=== PATIENT | male | born 1970 | race Hispanic/Latino ===

== ENCOUNTER 2018-01-17 15:12 | Emergency (ER) | payer SELFPAY ==
--- NOTE | 2018-01-17 17:57 | ER ---
Nurse's Notes [facility] Name: Rich Prakash Age: 47 yrs Sex: Male : 1970 Arrival Date: 01/17/2018 Time: 15:14 Bed 30 Private MD: Diagnosis: Osteoarthritis, unspecified site Presentation: 01/17 15:22 Presenting complaint: Patient states: "I was lifting a water heater and it slipped, I lk1 was holding in with one arm and I felt something pop in my shoulder (right)". Transition of care: patient was not received from another setting of care. Onset of symptoms was January 16, 2018 at 10:00. Care prior to arrival: None. 15:22 Method Of Arrival: Ambulatory lk1 15:22 Acuity: GRABIEL 3 lk1 Triage Assessment: 15:24 General: Appears in no apparent distress. Behavior is cooperative, appropriate for age, lk1 anxious. Pain: Complains of pain in right arm Pain currently is 8 out of 10 on a pain scale. at worst was 10 out of 10 on a pain scale. Historical: - Allergies: 15:24 Peanut; lk1 - PMHx: 15:24 Hypertension; lk1 - PSHx: 15:24 None; lk1 - Immunization history:: Adult Immunizations not up to date. - Social history:: Smoking status: Patient uses tobacco products, smokes one pack cigarettes per day. Screenin:15 Abuse screen: Denies threats or abuse. Nutritional screening: No deficits noted. tl3 Tuberculosis screening: No symptoms or risk factors identified. Fall Risk None identified. Assessment: 17:15 General: Appears uncomfortable, well groomed, well developed, well nourished, Behavior tl3 is calm, cooperative, appropriate for age. Pain: Complains of pain in right arm, right shoulder Pain currently is 8 out of 10 on a pain scale. Neuro: No deficits noted. Level of Consciousness is awake, alert, obeys commands, Oriented to person, place, time, situation, Appropriate for age. Cardiovascular: Heart tones S1 S2 present Capillary refill < 3 seconds in right fingers. Respiratory: Airway is patent Trachea midline Breath sounds are clear bilaterally. GI: No signs and/or symptoms were reported involving the gastrointestinal system. : No signs and/or symptoms were reported regarding the genitourinary system. EENT: No signs and/or symptoms were reported regarding the EENT system. Derm: No signs and/or symptoms reported regarding the dermatologic system. Musculoskeletal: Reports pain in right arm, right shoulder. Injury Description: pt was helping to install a water heater when he felt his shoulder pop, soreness to shoulder and swelling to elbow area. 18:10 Reassessment: Patient appears in no apparent distress at this time. No changes from tl3 previously documented assessment. Patient and/or family updated on plan of care and expected duration. Pain level reassessed. Patient is alert, oriented x 3, equal unlabored respirations, skin warm/dry/pink. Dr Love at bedside discussing POC. Vital Signs: 15:25 BP 141 / 116; Pulse 120; Resp 18; Temp 98.4(TE); Pulse Ox 97% on R/A; Weight 79.38 kg lk1 (R); Height 5 ft. 6 in. (167.64 cm); Pain 8/10; 17:59 BP 143 / 109; Pulse 98; Resp 18; Pulse Ox 100% ; tl3 15:25 Body Mass Index 28.25 (79.38 kg, 167.64 cm) lk1 ED Course: 15:14 Patient arrived in ED. as 15:23 Triage completed. lk1 15:25 Arm band placed on left wrist. lk1 17:04 Tania Reed, RN is Primary Nurse. tl3 17:05 Ponce Love MD is Attending Physician. gs 17:15 No apparent distress. Awaiting for x-ray. tl3 17:15 Patient has correct armband on for positive identification. Bed in low position. Call tl3 light in reach. Adult w/ patient. 17:15 No provider procedures requiring assistance completed. tl3 17:42 X-ray(s) taken. tl3 17:56 Dillon Gentile MD is Referral Physician. gs 18:05 Shoulder Right (2 View) XRAY In Process Unspecified. EDMS 18:10 Patient did not have IV access during this emergency room visit. tl3 Administered Medications: No medications were administered Outcome: 17:57 Discharge ordered by . gs 18:10 Discharged to home ambulatory. tl3 18:10 Condition: stable 18:10 Discharge instructions given to patient, Instructed on discharge instructions, follow up and referral plans. medication usage, Demonstrated understanding of instructions, follow-up care, medications, Prescriptions given X 1, instructed on using sling for comfort, rest and medications as directed, also discussed importance of getting HTN under control 18:13 Patient left the ED. tl3 Signatures: Dispatcher [employer] Deja Patel Leah, RN RN lk1 Ponce Love MD MD gs Lowrey, Tammy, RN RN tl3
--- NOTE | 2018-01-17 17:57 | EDPHYS ---
Physician Documentation [facility] Name: Rich Prakash Age: 47 yrs Sex: Male : 1970 Arrival Date: 01/17/2018 Time: 15:14 Bed 30 Private MD: ED Physician Ponce Love HPI: 01/17 17:50 This 47 yrs old Male presents to ER via Ambulatory with complaints of Shoulder gs Pain, Elbow Pain. 17:50 The patient or guardian complains of pain, that is acute. gs Historical: - Allergies: 15:24 Peanut; lk1 - PMHx: 15:24 Hypertension; lk1 - PSHx: 15:24 None; lk1 - Immunization history:: Adult Immunizations not up to date. - Social history:: Smoking status: Patient uses tobacco products, smokes one pack cigarettes per day. ROS: 17:54 All other systems are negative. gs Exam: 17:54 Head/Face: Normocephalic, atraumatic. Eyes: Pupils equal round and reactive to light, gs extra-ocular motions intact. Lids and lashes normal. Conjunctiva and sclera are non-icteric and not injected. Cornea within normal limits. Periorbital areas with no swelling, redness, or edema. ENT: Nares patent. No nasal discharge, no septal abnormalities noted. Tympanic membranes are normal and external auditory canals are clear. Oropharynx with no redness, swelling, or masses, exudates, or evidence of obstruction, uvula midline. Mucous membranes moist. Neck: Trachea midline, no thyromegaly or masses palpated, and no cervical lymphadenopathy. Supple, full range of motion without nuchal rigidity, or vertebral point tenderness. No Meningismus. Chest/axilla: Normal chest wall appearance and motion. Nontender with no deformity. No lesions are appreciated. Cardiovascular: Regular rate and rhythm with a normal S1 and S2. No gallops, murmurs, or rubs. Normal PMI, no JVD. No pulse deficits. Respiratory: Lungs have equal breath sounds bilaterally, clear to auscultation and percussion. No rales, rhonchi or wheezes noted. No increased work of breathing, no retractions or nasal flaring. Abdomen/GI: Soft, non-tender, with normal bowel sounds. No distension or tympany. No guarding or rebound. No evidence of tenderness throughout. Back: No spinal tenderness. No costovertebral tenderness. Full range of motion. Skin: Warm, dry with normal turgor. Normal color with no rashes, no lesions, and no evidence of cellulitis. Neuro: Awake and alert, GCS 15, oriented to person, place, time, and situation. Cranial nerves II-XII grossly intact. Motor strength 5/5 in all extremities. Sensory grossly intact. Cerebellar exam normal. Normal gait. 17:54 Constitutional: The patient appears alert, awake. 17:54 Musculoskeletal/extremity: ROM: limited active range of motion, limited passive range of motion, limited active range of motion due to pain, limited passive range of motion due to pain, Pulses: are normal with no appreciated deficits, Sensation intact. Joints: the right shoulder displays painful range of motion, tenderness. 17:57 Musculoskeletal/extremity: cyst r elbow not red or hot nl rom. gs Vital Signs: 15:25 BP 141 / 116; Pulse 120; Resp 18; Temp 98.4(TE); Pulse Ox 97% on R/A; Weight 79.38 kg lk1 (R); Height 5 ft. 6 in. (167.64 cm); Pain 8/10; 17:59 BP 143 / 109; Pulse 98; Resp 18; Pulse Ox 100% ; tl3 15:25 Body Mass Index 28.25 (79.38 kg, 167.64 cm) lk1 MDM: 17:18 Patient medically screened. gs 17:54 Differential diagnosis: Anterior dislocation with fracture, DJD, tendonitis. Data gs reviewed: vital signs, nurses notes. 01/17 17:21 Order name: Shoulder Right (2 View) XRAY gs Administered Medications: No medications were administered Disposition: 01/17/18 17:57 Discharged to Home. Impression: Osteoarthritis, unspecified site. - Condition is Stable. - Discharge Instructions: Shoulder Pain. - Prescriptions for Tylenol- Codeine #4 300-60 mg Oral Tablet - take 1 tablet by ORAL route every 6 hours As needed; 10 tablet. - Medication Reconciliation Form, Thank You Letter, Antibiotic Education, Prescription Opioid Use form. - Follow up: Private Physician; When: 2 - 3 days; Reason: Re-evaluation by your physician. Follow up: Dillon Gentile MD; When: 2 - 3 days; Reason: Re-evaluation by your physician. Signatures: Dispatcher [employer] Kendal Baltazar, RN RN lk1 Ponce Love MD MD gs Lowrey, Tammy, RN RN tl3
[2018-01-17 18:18] VITALS: TEMP 98.4
[2018-01-17 18:20] VITALS: BP 143/109; O2SAT 100
--- NOTE | 2018-01-17 18:38 | RAD REPORT ---
EXAM DESCRIPTION: RAD - Shoulder Right 2 View - 01/17/2018 6:05 pm CLINICAL HISTORY: Right shoulder pain and swelling. COMPARISON: None. FINDINGS: Mild osteoarthritis affects the AC joint with inferiorly projecting osteophyte. Mild to mo derate glenohumeral joint arthritic changes are seen. No fracture, dislocation or aggressive marrow l esion. Subacromial outlet narrowing is noted, which could indicate underlying rotator cuff pathology.
== END 2018-01-17 18:13 | disposition home or self-care (01) ==
LOC: ER 15:12
DX: M19.90 Unspecified osteoarthritis, unspecified site (principal); I10 Essential (primary) hypertension; F17.210 Nicotine dependence, cigarettes, uncomplicated; Z91.010 Allergy to peanuts
CPT/HCPCS: 99283

== ENCOUNTER 2019-06-06 13:21 | Emergency (ER) | payer SELFPAY ==
[2019-06-06] MEDS ORDERED: FLUORESCEIN SODIUM 1 MG/WRAP ONE (13:54)
[2019-06-06] MEDS ORDERED: TETRACAINE HCL 0.5% 4ML OPTH ONE (13:54)
--- NOTE | 2019-06-06 14:33 | ER ---
Nurse's Notes [facility] Name: Rich Prakash Age: 48 yrs Sex: Male : 1970 Arrival Date: 06/06/2019 Time: 13:26 Bed 14 Private MD: Diagnosis: Injury of conjunctiva and corneal abrasion without foreign body;Injury of conjunctiva and corneal abrasion without foreign body, left eye Presentation: 06/06 13:33 Presenting complaint: Patient states: yesterday, i think a piece of small wood got hj stuck on my L eye and now it seems my vision is blurry;. Transition of care: patient was not received from another setting of care. Mechanism of Injury: No Mechanism of Injury. The patient denies any loss of vision. Onset of symptoms was June 06, 2019. Risk Assessment: Do you want to hurt yourself or someone else? Patient reports no desire to harm self or others. Initial Sepsis Screen: Does the patient meet any 2 criteria? No. Patient's initial sepsis screen is negative. Does the patient have a suspected source of infection? No. Patient's initial sepsis screen is negative. Care prior to arrival: None. 13:33 Method Of Arrival: Ambulatory 13:33 Acuity: GRABIEL 4 hj Historical: - Allergies: 13:34 Peanut; hj - Home Meds: 13:34 None [Active]; hj - PMHx: 13:34 Hypertension; hj - PSHx: 13:34 None; hj - Immunization history:: Adult Immunizations. - Social history:: Smoking status: . - Ebola Screening: : Patient denies travel to an Ebola-affected area in the 21 days before illness onset. Screenin:44 Abuse screen: Denies threats or abuse. Nutritional screening: No deficits noted. tw2 Tuberculosis screening: No symptoms or risk factors identified. Fall Risk None identified. Assessment: 14:00 General: Appears uncomfortable, Behavior is calm, cooperative. Pain: Complains of pain rb1 in left eye Pain currently is 8 out of 10 on a pain scale. Pain began 1 day ago. Neuro: Level of Consciousness is awake, alert, obeys commands, Oriented to person, place, time, situation. Cardiovascular: Capillary refill < 3 seconds is brisk in bilateral fingers. Respiratory: Airway is patent Respiratory effort is even, unlabored, Respiratory pattern is regular, symmetrical. GI: No signs and/or symptoms were reported involving the gastrointestinal system. : No signs and/or symptoms were reported regarding the genitourinary system. EENT: Eyes are tearing on left eye Sclera/Cornea are reddened in left eye. Derm: Skin is pink, warm \T\ dry. Musculoskeletal: Range of motion: intact in all extremities. 14:54 Reassessment: discharge pending due to shot time. rb1 15:00 Reassessment: Patient appears in no apparent distress at this time. No changes from rb1 previously documented assessment. Family at bedside. Vital Signs: 13:34 BP 129 / 88; Pulse 73; Resp 18; Temp 98.8(TE); Pulse Ox 97% on R/A; Weight 81.65 kg; hj Height 5 ft. 7 in. (170.18 cm); Pain 8/10; 14:32 BP 127 / 79; Pulse 78; Resp 18; Temp 98.5(O); Pulse Ox 98% on R/A; Pain 8/10; rb1 13:34 Body Mass Index 28.19 (81.65 kg, 170.18 cm) hj Visual Acuity: 14:20 Left Eye Visual acuity 20/25, ; Right Eye Visual acuity 20/20, ; Without Lenses; rb1 ED Course: 13:26 Patient arrived in ED. mr 13:34 Triage completed. hj 13:36 Arm band placed on left wrist. hj 13:36 Bed in low position. Call light in reach. tw2 13:40 Ponce Love MD is Attending Physician. 14:02 Neha Landa, RN is Primary Nurse. rb1 15:06 No provider procedures requiring assistance completed. Patient did not have IV access rb1 during this emergency room visit. Administered Medications: 14:28 Drug: Tetracaine Drops 0.5 % 1 drops Route: Ophthalmic; Site: left eye; rb1 14:54 Drug: Tetanus-Diphtheria Toxoid Adult 0.5 ml {Research Advisor: Jascha. Exp: rb1 01/26/2021. Lot #: [id number]. } Route: IM; Site: left deltoid; 15:06 Follow up: Response: No adverse reaction rb1 Outcome: 14:31 Discharge ordered by . gs 15:06 Discharged to home ambulatory, with family. rb1 15:06 Condition: stable 15:06 Discharge instructions given to patient, Instructed on discharge instructions, follow up and referral plans. medication usage, Demonstrated understanding of instructions, follow-up care, medications, Prescriptions given X 1. 15:07 Patient left the ED. rb1 Signatures: Sara MoralezPaul RN RN hj Neha Landa RN RN rb1 Elizabeth Savage RN RN tw2 Ponce Love MD MD Corrections: (The following items were deleted from the chart) 13:37 13:34 Pulse 73bpm; Resp 18bpm; Pulse Ox 97% RA; Temp 98.8F Temporal; 81.65 kg; Height 5 hj ft. 7 in.; BMI: 28.1; Pain 8/10; hj
--- NOTE | 2019-06-06 14:33 | EDPHYS ---
Physician Documentation [facility] Name: Rich Prakash Age: 48 yrs Sex: Male : 1970 Arrival Date: 06/06/2019 Time: 13:26 Bed 14 Private MD: ED Physician Ponce Love HPI: 06/06 14:27 This 48 yrs old Male presents to ER via Ambulatory with complaints of Eye Pain.gs 14:27 The patient is experiencing pain, redness, The patient sustained a scratch. Onset: The gs symptoms/episode began/occurred yesterday, and became worse. Duration: the symptoms are continuous. Aggravated by nothing. Alleviated by nothing. Associated signs and symptoms: Pertinent negatives: fever. Severity of symptoms: At their worst the symptoms were moderate in the emergency department the symptoms are unchanged. The patient has experienced similar episodes in the past, a few times. Historical: - Allergies: 13:34 Peanut; hj - Home Meds: 13:34 None [Active]; hj - PMHx: 13:34 Hypertension; hj - PSHx: 13:34 None; hj - Immunization history:: Adult Immunizations. - Social history:: Smoking status: . - Ebola Screening: : Patient denies travel to an Ebola-affected area in the 21 days before illness onset. ROS: 14:27 All other systems are negative. gs Exam: 14:27 Visual Acuity: I have reviewed the nursing documentation. gs 14:27 Head/Face: Normocephalic, atraumatic. ENT: Nares patent. No nasal discharge, no septal abnormalities noted. Tympanic membranes are normal and external auditory canals are clear. Oropharynx with no redness, swelling, or masses, exudates, or evidence of obstruction, uvula midline. Mucous membranes moist. Neck: Trachea midline, no thyromegaly or masses palpated, and no cervical lymphadenopathy. Supple, full range of motion without nuchal rigidity, or vertebral point tenderness. No Meningismus. 14:27 Eyes: Periorbital structures: appear normal, Pupils: no acute changes, equal, round, and reactive to light and accomodation, Extraocular movements: no acute changes, Conjunctiva: injected, in the left eye, Corneas: abrasion, that is moderate sized, on the left, foreign body, is not appreciated, a fluorescein strip employed to appreciate the findings. Vital Signs: 13:34 BP 129 / 88; Pulse 73; Resp 18; Temp 98.8(TE); Pulse Ox 97% on R/A; Weight 81.65 kg; hj Height 5 ft. 7 in. (170.18 cm); Pain 8/10; 14:32 BP 127 / 79; Pulse 78; Resp 18; Temp 98.5(O); Pulse Ox 98% on R/A; Pain 8/10; rb1 13:34 Body Mass Index 28.19 (81.65 kg, 170.18 cm) Visual Acuity: 14:20 Left Eye Visual acuity 20/25, ; Right Eye Visual acuity 20/20, ; Without Lenses; rb1 MDM: 14:25 Patient medically screened. 14:27 Data reviewed: vital signs, nurses notes. 06/06 13:49 Order name: Visual Acuity; Complete Time: 14:28 06/06 13:49 Order name: Eye Tray; Complete Time: 13:53 06/06 13:49 Order name: Fluoresene Opth strip; Complete Time: 13:53 Administered Medications: 14:28 Drug: Tetracaine Drops 0.5 % 1 drops Route: Ophthalmic; Site: left eye; rb1 14:54 Drug: Tetanus-Diphtheria Toxoid Adult 0.5 ml {Quality Assurance Test Program Manager: ENDOTRONIX. Exp: rb1 01/26/2021. Lot #: [id number]. } Route: IM; Site: left deltoid; 15:06 Follow up: Response: No adverse reaction rb1 Disposition: 06/06/19 14:31 Discharged to Home. Impression: Injury of conjunctiva and corneal abrasion without foreign body, Injury of conjunctiva and corneal abrasion without foreign body, left eye. - Condition is Stable. - Discharge Instructions: Corneal Abrasion, [id number]. - Prescriptions for Erythromycin 5 mg/gram (0.5 %) Ophthalmic Ointment - apply 1 centimeter by OPHTHALMIC route 2-3 times daily for 7 days; 1 tube. - Work release form, Medication Reconciliation Form, Thank You Letter, Antibiotic Education, Prescription Opioid Use form. - Follow up: Private Physician; When: 2 - 3 days; Reason: Re-evaluation by your physician. Signatures: Paul Caballero RN RN Neha Landa RN RN [facility] Elizabeth Savage RN RN 2 Ponce Love MD MD gs Corrections: (The following items were deleted from the chart) 15:07 14:31 06/06/2019 14:31 Discharged to Home. Impression: Injury of conjunctiva and rb1 corneal abrasion without foreign body; Injury of conjunctiva and corneal abrasion without foreign body, left eye. Condition is Stable. Forms are Work release form, Medication Reconciliation Form, Thank You Letter, Antibiotic Education, Prescription Opioid Use. Follow up: Private Physician; When: 2 - 3 days; Reason: Re-evaluation by your physician. gs
[2019-06-06] MEDS ORDERED: TETANUS & DIPHTHERIA TOX,ADULT 0.5 ML VIAL ONE (14:49)
[2019-06-06 15:14] VITALS: BP 127/79; TEMP 98.5; O2SAT 98
== END 2019-06-06 15:07 | disposition home or self-care (01) ==
LOC: ER 13:21
DX: S05.02XA Injury of conjunctiva and corneal abrasion without foreign body, left eye, initial encounter (principal); X58.XXXA Exposure to other specified factors, initial encounter; Y93.9 Activity, unspecified; Y92.9 Unspecified place or not applicable; Z23 Encounter for immunization; Z91.010 Allergy to peanuts; I10 Essential (primary) hypertension
CPT/HCPCS: 90471; 90714; 99283

== ENCOUNTER 2020-04-23 10:55 | Emergency (ER) | payer OTHER, SELFPAY ==
--- NOTE | 2020-04-23 12:02 | RAD REPORT ---
EXAM DESCRIPTION: RAD - Chest Single View - 04/23/2020 11:55 am CLINICAL HISTORY: chills;Cough COMPARISON: Two view chest December 2007 TECHNIQUE: AP portable chest image was obtained 04/23/2020 11:55 am . FINDINGS: No focal mass or consolidation. No ground-glass opacities identifiable. Lung markings are less prominent than seen previously. Heart and vasculature are normal. No measurable pleural effusion and no pneumothorax. No acute bony abnormality seen. No acute aortic findings suspected. IMPRESSION: No acute cardiopulmonary process seen at this time.
--- NOTE | 2020-04-23 12:51 | ER ---
Nurse's Notes [facility] Name: Rich Prakash Age: 49 yrs Sex: Male : 1970 Arrival Date: 04/23/2020 Time: 10:57 Bed 6 Private MD: Diagnosis: Bronchitis, not specified as acute or chronic Presentation: 04/23 11:07 Chief complaint: Patient states: MYALGIA, CHILLS x2 DAYS. Coronavirus screen: Proceed bp with normal triage. Coronavirus screen: Ebola Screen: No symptoms or risks identified at this time. Initial Sepsis Screen: Does the patient meet any 2 criteria? No. Patient's initial sepsis screen is negative. Does the patient have a suspected source of infection? No. Patient's initial sepsis screen is negative. Risk Assessment: Do you want to hurt yourself or someone else? Patient reports no desire to harm self or others. Onset of symptoms is unknown. 11:07 Acuity: GRABIEL 3 bp 11:07 Method Of Arrival: Ambulatory bp Triage Assessment: 11:09 Headache History: The patient has had previous headaches and this one is similar to bp previous episodes. General: Appears in no apparent distress. uncomfortable, Behavior is cooperative, appropriate for age, anxious. Pain: Complains of pain in head Pain currently is 4 out of 10 on a pain scale. Pain began 1 day ago. Also complains of no other associated symptoms. EENT: Reports nasal congestion. Neuro: Reports headache. Cardiovascular: No deficits noted. Respiratory: No deficits noted. GI: No signs and/or symptoms were reported involving the gastrointestinal system. : No signs and/or symptoms were reported regarding the genitourinary system. Derm: No deficits noted. Musculoskeletal: No deficits noted. Historical: - Allergies: 11:09 Peanut; bp - Home Meds: 11:09 None [Active]; bp - PMHx: 11:09 Hypertension; bp - Immunization history:: Adult Immunizations unknown. - Social history:: Smoking status: Patient denies any tobacco usage or history of. Screenin:10 Abuse screen: Denies threats or abuse. Denies injuries from another. Nutritional bp screening: No deficits noted. Tuberculosis screening: No symptoms or risk factors identified. Fall Risk None identified. Assessment: 11:10 General: SEE TRIAGE NOTE. bp 12:32 Reassessment: ALL CURRENT ORDERS COMPLETED, DISPO PENDING. bp Vital Signs: 11:07 BP 140 / 97; Pulse 120; Resp 20; Temp 97.7; Pulse Ox 97% ; bp 12:31 BP 153 / 103; Pulse 114; Resp 18; Pulse Ox 94% ; bp 13:08 BP 125 / 86; Pulse 68; Resp 17; Temp 97.5; Pulse Ox 92% ; bp [place] Coma Score: 12:52 Eye Response: spontaneous(4). Verbal Response: oriented(5). Motor Response: obeys snw commands(6). Total: 15. ED Course: 10:57 Patient arrived in ED. ag5 11:06 Antwan Johns, RN is Primary Nurse. bp 11:09 Triage completed. bp 11:10 Arm band placed on. bp 11:10 Patient has correct armband on for positive identification. Bed in low position. Call bp light in reach. Side rails up X2. 11:32 Anne Cameron [facility]C [facility]. snw 11:32 Chance Lign MD is Attending Physician. snw 11:55 Chest Single View XRAY In Process Unspecified. EDMS Administered Medications: 12:50 Drug: Zithromax 500 mg Route: PO; bp 13:11 Follow up: Response: No adverse reaction bp Outcome: 12:50 Discharge ordered by . snw 13:10 Patient left the ED. Addendum: 04/25/2020 09:51 Addendum: COVID-19 Result: Negative result given to RN to notify pt. Notified pt of e b negative COVID 19 swab results. Pt advised that even with a negative test result they should remain in isolation until symptom free for 3 days without medication. Pt also advised to return to the ED for worsening symptoms. Signatures: Dispatcher [employer] EDMS Anne Munoz FNP-C [employer] Diana Holden RN RN iw Peltier, Brian, RN RN bp Botello, Elizabeth eb Gaskin, Ajare ag5
--- NOTE | 2020-04-23 12:51 | EDPHYS ---
Physician Documentation [facility] Name: Rich Prakash Age: 49 yrs Sex: Male : 1970 Arrival Date: 04/23/2020 Time: 10:57 Bed 6 Private MD: ED Physician Chance Ling HPI: 04/23 12:54 This 49 yrs old Male presents to ER via Ambulatory with complaints of snw Headache, Cough, Chills. 12:54 The patient or guardian reports airway noise, cough, flu symptoms, myalgias, no snw appetite. Onset: The symptoms/episode began/occurred suddenly, 3 day(s) ago, and became persistent. Associated signs and symptoms: Pertinent positives: fever. Severity of symptoms: At their worst the symptoms were moderate. It is unknown whether or not the patient has had similar symptoms in the past. The patient has not recently seen a physician. Historical: - Allergies: 11:09 Peanut; bp - Home Meds: 11:09 None [Active]; bp - PMHx: 11:09 Hypertension; bp - Immunization history:: Adult Immunizations unknown. - Social history:: Smoking status: Patient denies any tobacco usage or history of. ROS: 12:53 Constitutional: Positive for fever, chills, and negative for weight loss, Eyes: snw Negative for injury, pain, redness, and discharge, ENT: Negative for injury, pain, and discharge, Neck: Negative for injury, pain, and swelling, Cardiovascular: Negative for chest pain, palpitations, and edema, Respiratory: Negative for shortness of breath, cough, wheezing, and pleuritic chest pain, Abdomen/GI: Negative for abdominal pain, nausea, vomiting, diarrhea, and constipation, Back: Negative for injury and pain, : Negative for injury, bleeding, discharge, and swelling, MS/Extremity: Negative for injury and deformity, Skin: Negative for injury, rash, and discoloration, Neuro: Negative for headache, weakness, numbness, tingling, and seizure. Exam: 12:53 Head/Face: Normocephalic, atraumatic. Eyes: Pupils equal round and reactive to light, snw extra-ocular motions intact. Lids and lashes normal. Conjunctiva and sclera are non-icteric and not injected. Cornea within normal limits. Periorbital areas with no swelling, redness, or edema. ENT: Nares patent. No nasal discharge, no septal abnormalities noted. Tympanic membranes are normal and external auditory canals are clear. Oropharynx with no redness, swelling, or masses, exudates, or evidence of obstruction, uvula midline. Mucous membranes moist. Neck: Trachea midline, no thyromegaly or masses palpated, and no cervical lymphadenopathy. Supple, full range of motion without nuchal rigidity, or vertebral point tenderness. No Meningismus. Chest/axilla: Normal chest wall appearance and motion. Nontender with no deformity. No lesions are appreciated. Abdomen/GI: Soft, non-tender, with normal bowel sounds. No distension or tympany. No guarding or rebound. No evidence of tenderness throughout. Back: No spinal tenderness. No costovertebral tenderness. Full range of motion. Skin: Warm, dry with normal turgor. Normal color with no rashes, no lesions, and no evidence of cellulitis. MS/ Extremity: Pulses equal, no cyanosis. Neurovascular intact. Full, normal range of motion. Neuro: Awake and alert, GCS 15, oriented to person, place, time, and situation. Cranial nerves II-XII grossly intact. Motor strength 5/5 in all extremities. Sensory grossly intact. Cerebellar exam normal. Normal gait. Psych: Awake, alert, with orientation to person, place and time. Behavior, mood, and affect are within normal limits. 12:53 Constitutional: The patient appears alert, awake, comfortable. 12:53 Cardiovascular: Rate: tachycardic, Rhythm: regular, Pulses: no pulse deficits are appreciated, Heart sounds: normal. 12:53 Respiratory: the patient does not display signs of respiratory distress, Respirations: normal, Breath sounds: wheezing: expiratory that is moderate, that is severe, is scattered. Vital Signs: 11:07 BP 140 / 97; Pulse 120; Resp 20; Temp 97.7; Pulse Ox 97% ; bp 12:31 BP 153 / 103; Pulse 114; Resp 18; Pulse Ox 94% ; bp 13:08 BP 125 / 86; Pulse 68; Resp 17; Temp 97.5; Pulse Ox 92% ; bp Vina Coma Score: 12:52 Eye Response: spontaneous(4). Verbal Response: oriented(5). Motor Response: obeys snw commands(6). Total: 15. MDM: 11:33 Patient medically screened. snw 12:52 Data reviewed: vital signs, nurses notes. Data interpreted: Pulse oximetry: on room air snw is 94 %. Interpretation: normal. Counseling: I had a detailed discussion with the patient and/or guardian regarding: the historical points, exam findings, and any diagnostic results supporting the discharge/admit diagnosis, the presence of at least one elevated blood pressure reading (>120/80) during this emergency department visit, radiology results, the need for outpatient follow up, to return to the emergency department if symptoms worsen or persist or if there are any questions or concerns that arise at home. Counseling: I had a detailed discussion with the patient and/or guardian regarding: smoking cessation. Special discussion: Based on the history and exam findings, there is no indication for further emergent testing or inpatient evaluation. I discussed with the patient/guardian the need to see the primary care provider for further evaluation of the symptoms. 04/23 11:34 Order name: COVID-19 snw 04/23 11:42 Order name: Chest Single View XRAY; Complete Time: 12:09 snw Administered Medications: 12:50 Drug: Zithromax 500 mg Route: PO; bp 13:11 Follow up: Response: No adverse reaction bp Disposition: 04/23/20 12:50 Discharged to Home. Impression: Bronchitis, not specified as acute or chronic. - Condition is Stable. - Discharge Instructions: Acute Bronchitis, Adult, Hypertension, How to Use an Inhaler, Upper Respiratory Infection, Adult. - Prescriptions for Prednisone 20 mg Oral Tablet - take 2 tablet by ORAL route once daily for 5 days; 10 tablet. Albuterol Sulfate 90 mcg/actuation - inhale 1-2 puff by INHALATION route every 4-6 hours; 1 Inhaler. Pepcid 20 mg Oral Tablet - take 1 tablet by ORAL route once daily for 10 days; 10 tablet. Zithromax 500 mg Oral Tablet - take 1 tablet by ORAL route once daily for 5 days; 5 tablet. - Work release form, Medication Reconciliation Form, Thank You Letter, Antibiotic Education, Prescription Opioid Use form. - Follow up: Emergency Department; When: As needed; Reason: Trouble breathing, Worsening of condition. Follow up: Private Physician; When: 5 - 6 days; Reason: Recheck today's complaints, Continuance of care, Re-evaluation by your physician. - Notes: Please quarantine until test results return. Avoid Motrin/Advil. Addendum: 04/25/2020 21:10 Co-signature as Attending Physician, Chance Ling MD Did not see or evaluate patient. p s1 I was available in the ED for consultation. Signature for administrative purposes. . Signatures: Dispatcher [employer] EDMS Alexander Anne, TUBE DRAW HELPER-C TUBE DRAW HELPER-Csnw Diana Holden, RN RN iw Antwan Johns RN RN bp Chance Ling MD MD ps1 Corrections: (The following items were deleted from the chart) 04/23 13:10 12:50 04/23/2020 12:50 Discharged to Home. Impression: Bronchitis, not specified as iw acute or chronic. Condition is Stable. Forms are Medication Reconciliation Form, Thank You Letter, Antibiotic Education, Prescription Opioid Use. Follow up: Emergency Department; When: As needed; Reason: Trouble breathing, Worsening of condition. Follow up: Private Physician; When: 5 - 6 days; Reason: Recheck today's complaints, Continuance of care, Re-evaluation by your physician. snw
[2020-04-23] MEDS ORDERED: AZITHROMYCIN 250 MG TAB ONE (12:59)
[2020-04-23 13:23] VITALS: BP 125/86; TEMP 97.5; O2SAT 92
== END 2020-04-23 13:10 | disposition home or self-care (01) ==
LOC: ER 10:55
DX: J40 Bronchitis, not specified as acute or chronic (principal); Z20.828 Contact with and (suspected) exposure to other viral communicable diseases; I10 Essential (primary) hypertension; Z91.010 Allergy to peanuts
CPT/HCPCS: 71045; 99283; U0001

== ENCOUNTER 2021-08-05 16:04 | Emergency (ER) | payer SELFPAY ==
[2021-08-05 16:41] LABS: Absolute Lymphocytes (CBC) 1.7 K/uL (0.7-4.9); Basophils % 1.2 % (0-1.3); Hematocrit 37.3 % (39.6-49.0); Lymphocytes % 16.1 % (15.3-44.8); MPV 7.6 fL (7.6-11.3); RBC Red Blood Cell Count 4.74 M/uL (4.33-5.43)
[2021-08-05 16:42] LABS: Protime INR 1.14
[2021-08-05] MEDS ORDERED: NA CHLORIDE 0.9% 1,000 ML ONE (16:51)
--- NOTE | 2021-08-05 16:56 | RAD REPORT ---
EXAM DESCRIPTION: Valentin Single View08/05/2021 4:38 pm CLINICAL HISTORY: cough COMPARISON: 2019 FINDINGS: Area of subsegmental atelectasis or scarring left lung base. The remainder of the lungs appear clear of acute infiltrate. The heart is normal size
[2021-08-05 17:01] LABS: ALT/SGPT 61 U/L (12-78); AST/SGOT 36 U/L (15-37); Albumin 3.9 g/dL (3.4-5.0); Alkaline Phosphatase 123 U/L (45-117); BUN Blood Urea Nitrogen 19 mg/dL (7-18); Bicarbonate 27 mmol/L (21-32); Bilirubin Direct 0.2 mg/dL (0-0.2); Bilirubin Total 0.6 mg/dL (0.2-1.0); Creatine Phosphokinase 355 U/L (39-308); Glucose Level 111 mg/dL (74-106); Magnesium 1.7 mg/dL (1.8-2.4); NT PRO-BNP 76 pg/mL (<125); Protein, Total 7.7 g/dL (6.4-8.2); Sodium Level 138 mmol/L (136-145); Troponin (Emerg Dept Use Only) < 0.02 ng/mL (0.0-0.045)
[2021-08-05] MEDS ORDERED: MAGNESIUM SULFATE 1 gm IVPB 1 GM/100 ML BAG IV ONE (18:24)
--- NOTE | 2021-08-05 18:36 | EDPHYS ---
Physician Documentation [facility] Name: Rich Prakash Age: 50 yrs Sex: Male : 1970 Arrival Date: 08/05/2021 Time: 16:16 Bed 13 Private MD: ED Physician Luis Jordan HPI: 08/05 16:20 This 50 yrs old Male presents to ER via EMS with complaints of Pain All Over. cp 16:20 Patient presents to ED with complaints of generalized pain and cramping. Patient cp reports working outside today when he started having cramping pain in chest, abdominal cramping and pain to arms and legs. 16:20 Onset: The symptoms/episode began/occurred just prior to arrival. Severity of symptoms: cp in the emergency department the symptoms have improved moderately. Patient given IV fluids by EMS and reports symptoms improved. Historical: - Allergies: 19:18 Peanut; bs2 - PMHx: 19:18 Hypertension; bs2 - Immunization history:: Adult Immunizations up to date, Client reports receiving the 2nd dose of the Covid vaccine, Last tetanus immunization: up to date. - Social history:: Smoking status: Patient reports the use of cigarette tobacco products, unknown amount. ROS: 16:25 Constitutional: Negative for body aches, chills, fever, poor PO intake. cp 16:25 Eyes: Negative for injury, pain, redness, and discharge. cp 16:25 ENT: Negative for ear pain, sore throat, difficulty swallowing, difficulty handling secretions. 16:25 Cardiovascular: Positive for chest pain, Negative for edema, palpitations. 16:25 Respiratory: Negative for cough, shortness of breath, wheezing. 16:25 Abdomen/GI: Positive for abdominal pain, Negative for vomiting, diarrhea, constipation. 16:25 Neuro: Negative for altered mental status, dizziness, headache, syncope, weakness. 16:25 All other systems are negative. Exam: 16:30 Constitutional: The patient appears in no acute distress, alert, awake, cp non-diaphoretic, non-toxic, well developed, well nourished. 16:30 Head/Face: Normocephalic, atraumatic. cp 16:30 Eyes: Periorbital structures: appear normal, Conjunctiva: normal, no exudate, no injection, Sclera: no appreciated abnormality, Lids and lashes: appear normal, bilaterally. 16:30 ENT: External ear(s): are unremarkable, Nose: is normal, Mouth: Lips: moist, Oral mucosa: pink and intact, moist, Posterior pharynx: Airway: no evidence of obstruction, patent. 16:30 Neck: ROM/movement: is normal, is supple, without pain, no range of motions limitations, no nuchal rigidity. 16:30 Chest/axilla: Inspection: normal, Palpation: is normal, no crepitus, no tenderness. 16:30 Cardiovascular: Rate: normal, Rhythm: regular, Edema: is not appreciated, JVD: is not appreciated. 16:30 Respiratory: the patient does not display signs of respiratory distress, Respirations: normal, no use of accessory muscles, no retractions, labored breathing, is not present, Breath sounds: are clear throughout, no decreased breath sounds, no stridor, no wheezing. 16:30 Abdomen/GI: Inspection: abdomen appears normal, Bowel sounds: active, all quadrants, Palpation: soft, in all quadrants, nontender, in all quadrants, voluntary guarding, is not appreciated, involuntary guarding, is not appreciated. 16:30 Back: ROM is normal, CVA tenderness. 16:30 Skin: cellulitis, is not appreciated, no rash present. 16:30 Neuro: Orientation: to person, place \T\ time. Mentation: is normal, Motor: Sensation: is normal. 16:35 ECG was reviewed by the Attending Physician. cp Vital Signs: 16:33 BP 133 / 96; Pulse 75; Resp 17; Temp 98.4; Pulse Ox 97% ; Weight 81.65 kg; Height 5 ft. tc5 6 in. (167.64 cm); Pain 0/10; 18:55 BP 156 / 89; Pulse 70; Resp 15; Pulse Ox 97% ; Pain 0/10; tc5 19:19 BP 144 / 96 LA Sitting (auto/reg); Pulse 65 MON; Resp 15 S; Temp 98.6(O); Pulse Ox 96% bs2 on R/A; Pain 0/10; 16:33 Body Mass Index 29.05 (81.65 kg, 167.64 cm) tc5 MDM: 16:25 Patient medically screened. cp 16:35 Differential Diagnosis cardiac arrythmia, electrolyte abnormality, dehydration, heat cp exhaustion, renal failure. 18:35 Data reviewed: vital signs, nurses notes, lab test result(s), EKG, radiologic studies, cp plain films. 18:35 Test interpretation: by ED physician or midlevel provider: ECG, plain radiologic cp studies. Counseling: I had a detailed discussion with the patient and/or guardian regarding: the historical points, exam findings, and any diagnostic results supporting the discharge/admit diagnosis, lab results, radiology results, to return to the emergency department if symptoms worsen or persist or if there are any questions or concerns that arise at home. Response to treatment: the patient's symptoms have markedly improved after treatment, patient is well hydrated. and as a result, I will discharge patient. 08/05 16:18 Order name: Basic Metabolic Panel; Complete Time: 17:09 cp 08/05 17:09 Interpretation: Normal except: GLUC 111; BUN 19; CRE 1.48; GFR 50. cp 08/05 16:18 Order name: CBC with Diff; Complete Time: 17:09 cp 08/05 17:09 Interpretation: Normal except: HGB 12.6; HCT 37.3; MCV 78.8; MCH 26.5; JORDAN% 75.7. cp 08/05 16:18 Order name: LFT's; Complete Time: 17:09 cp 08/05 17:09 Interpretation: Normal except: ALK 123; GLOB 3.8; A/G 1.0. cp 08/05 16:18 Order name: Magnesium; Complete Time: 17:09 cp 08/05 16:18 Order name: NT PRO-BNP; Complete Time: 17:09 cp 08/05 16:18 Order name: PT-INR; Complete Time: 17: cp 08/05 16:18 Order name: Troponin (emerg Dept Use Only); Complete Time: 17:09 cp 08/05 16:18 Order name: XRAY Chest (1 view); Complete Time: 17:09 cp 08/05 16:18 Order name: EKG; Complete Time: 16:18 cp 08/05 16:18 Order name: Cardiac monitoring; Complete Time: 16:37 cp 08/05 16:18 Order name: EKG - Nurse/Tech; Complete Time: 16:23 cp 08/05 16:18 Order name: CK; Complete Time: 17: cp 08/05 16:18 Order name: IV Saline Lock; Complete Time: 16:33 cp 08/05 16:18 Order name: Labs collected and sent; Complete Time: 16:37 cp 08/05 16:18 Order name: O2 Per Protocol; Complete Time: 16:37 cp 08/05 16:18 Order name: O2 Sat Monitoring; Complete Time: 16:38 cp EC:35 Rate is 74 beats/min. Rhythm is regular. VT interval is normal. QRS interval is normal. cp QT interval is normal. T waves are Inverted in leads aVL, aVR. Interpreted by me. Reviewed by me. Administered Medications: 16:33 Drug: NS 0.9% 1000 ml Route: IV; Rate: 1 bolus; Site: right antecubital; tc5 19:21 Follow up: IV Status: Completed infusion bs2 18:03 Drug: Magnesium Sulfate 1 grams Route: IVPB; Infused Over: 1 hrs; Site: right tc5 antecubital; 19:21 Follow up: IV Status: Completed infusion bs2 Disposition Summary: 08/05/21 18:36 Discharge Ordered Location: Home cp Problem: new cp Symptoms: have improved cp Condition: Stable cp Diagnosis - Heat exhaustion, unspecified, initial encounter cp Followup: cp - With: Private Physician - When: 2 - 3 days - Reason: Worsening of condition Discharge Instructions: - Discharge Summary Sheet cp - Dehydration, Adult cp - Heat Exhaustion cp - Form - Excuse from Work, School, or Physical Activity cp Forms: - Medication Reconciliation Form cp - Thank You Letter cp - Antibiotic Education cp - Prescription Opioid Use cp Addendum: 08/09/2021 17:31 Co-signature as Attending Physician, Luis Jordan MD PA/AUTOMATIC ENGRAVER's history reviewed, m a2 patient interviewed, and examined. I agree with assessment and care plan and confirm the diagnosis (es) above. Signatures: Dispatcher [employer] EDMS Wing Islas PA PA cp Luis Jordan MD MD ma2 Amna Brown RN RN bs2 Awa Estrada RN RN tc5
--- NOTE | 2021-08-05 18:36 | ER ---
Nurse's Notes [facility] Name: Rich Prakash Age: 50 yrs Sex: Male : 1970 Arrival Date: 08/05/2021 Time: 16:16 Bed 13 Private MD: Diagnosis: Heat exhaustion, unspecified, initial encounter Presentation: 08/05 16:33 Chief complaint: Patient states: muscle cramps and spasms all over body. Coronavirus tc5 screen: Vaccine status: Patient reports receiving the 2nd dose of the covid vaccine. At this time, the client does not indicate any symptoms associated with coronavirus-19. Ebola Screen: No symptoms or risks identified at this time. Initial Sepsis Screen: Does the patient meet any 2 criteria? No. Patient's initial sepsis screen is negative. Risk Assessment: Do you want to hurt yourself or someone else? Patient reports no desire to harm self or others. Onset of symptoms was August 05, 2021 at 15:30. 16:33 Method Of Arrival: EMS tc5 16:33 Acuity: GRABIEL 3 tc5 19:18 Initial Sepsis Screen: Does the patient have a suspected source of infection? No. bs2 Patient's initial sepsis screen is negative. Triage Assessment: 19:18 General: Appears in no apparent distress. obese, well developed, Behavior is calm, bs2 cooperative, appropriate for age. Historical: - Allergies: 19:18 Peanut; bs2 - PMHx: 19:18 Hypertension; bs2 - Immunization history:: Adult Immunizations up to date, Client reports receiving the 2nd dose of the Covid vaccine, Last tetanus immunization: up to date. - Social history:: Smoking status: Patient reports the use of cigarette tobacco products, unknown amount. Screenin:41 Abuse screen: Denies threats or abuse. Denies injuries from another. Nutritional tc5 screening: No deficits noted. Tuberculosis screening: No symptoms or risk factors identified. Fall Risk IV access (20 points). Assessment: 16:39 Reassessment: Patient appears in no apparent distress at this time. No changes from tc5 previously documented assessment. General: Pt states he had cramps all over his body and his brother called 911 transported by EMS here, pt has 1000ml LR enroute, states he has not had cramps since.. Pain: Denies pain. Vital Signs: 16:33 BP 133 / 96; Pulse 75; Resp 17; Temp 98.4; Pulse Ox 97% ; Weight 81.65 kg; Height 5 ft. tc5 6 in. (167.64 cm); Pain 0/10; 18:55 BP 156 / 89; Pulse 70; Resp 15; Pulse Ox 97% ; Pain 0/10; tc5 19:19 BP 144 / 96 LA Sitting (auto/reg); Pulse 65 MON; Resp 15 S; Temp 98.6(O); Pulse Ox 96% bs2 on R/A; Pain 0/10; 16:33 Body Mass Index 29.05 (81.65 kg, 167.64 cm) tc5 ED Course: 16:16 Patient arrived in ED. tc5 16:16 Awa Estrada, SUSHILA is Primary Nurse. tc5 16:17 Wing Islas PA is PHCP. cp 16:17 Luis Jordan MD is Attending Physician. cp 16:23 Patient has correct armband on for positive identification. Placed in gown. Bed in low mh5 position. Call light in reach. Side rails up X 1. Warm blanket given. desk monitor on. Pulse ox on. NIBP on. 16:23 EKG done, by ED staff, reviewed by Luis Jordan MD. 5 16:37 Triage completed. tc5 16:38 XRAY Chest (1 view) In Process Unspecified. EDMS 16:38 Basic Metabolic Panel Sent. mh5 16:38 XRAY Chest (1 view) Sent. 5 16:38 CBC with Diff Sent. 5 16:38 LFT's Sent. mh5 16:38 Magnesium Sent. 5 16:38 NT PRO-BNP Sent. mh5 16:38 PT-INR Sent. 5 16:38 Troponin (emerg Dept Use Only) Sent. 5 16:38 CK Sent. 5 16:38 Initial lab(s) drawn, by ED staff, sent to lab. Maintain EMS IV. Dressing intact. Good 5 blood return noted. Site clean \T\ dry. 16:41 Inserted saline lock: 20 gauge in right antecubital area, using aseptic technique. tc5 Blood collected. 19:18 Arm band placed on left wrist. bs2 19:19 No provider procedures requiring assistance completed. IV discontinued, intact, bs2 bleeding controlled, No redness/swelling at site. Pressure dressing applied. Administered Medications: 16:33 Drug: NS 0.9% 1000 ml Route: IV; Rate: 1 bolus; Site: right antecubital; tc5 19:21 Follow up: IV Status: Completed infusion bs2 18:03 Drug: Magnesium Sulfate 1 grams Route: IVPB; Infused Over: 1 hrs; Site: right tc5 antecubital; 19:21 Follow up: IV Status: Completed infusion bs2 Outcome: 18:36 Discharge ordered by . sebas 19:19 Discharged to home ambulatory. bs2 19:19 Condition: improved 19:19 Discharge instructions given to patient, Instructed on discharge instructions, follow up and referral plans. Demonstrated understanding of instructions, follow-up care. 19:21 Patient left the ED. bs2 Signatures: Dispatcher [employer] EDMS Wing Islas PA PA cp Martinez, Maria Amna Oconnell, RN RN bs2 Awa Estrada RN RN tc5
[2021-08-05 19:30] VITALS: BP 144/96; TEMP 98.6; O2SAT 96
== END 2021-08-05 19:21 | disposition home or self-care (01) ==
LOC: ER 16:04
DX: T67.5XXA Heat exhaustion, unspecified, initial encounter (principal); I10 Essential (primary) hypertension; Z91.010 Allergy to peanuts; Z72.0 Tobacco use
CPT/HCPCS: 36415; 71045; 80048; 80076; 82550; 83735; 83880; 84484; 85025; 85610; 93005; 96361; 96365; 99285; J3475; J7030

== ENCOUNTER 2024-09-04 11:51 | Inpatient (IN) | payer OTHER ==
[2024-09-04] MEDS ORDERED: ONDANSETRON 4 MG/2 ML VIAL ONE (12:30)
[2024-09-04] MEDS ORDERED: NA CHLORIDE 0.9% 1,000 ML ONE (12:31)
[2024-09-04] MEDS ORDERED: MORPHINE 4 MG/ML SYR ONE (12:31)
[2024-09-04] MEDS ORDERED: FAMOTIDINE 20 MG/2 ML VIAL IV ONE (12:31)
[2024-09-04 12:32] LABS: Absolute Basophils 0.1 K/uL (0-0.5); Absolute Eosinophils 0.2 K/uL (0-0.5); Absolute Lymphocytes (CBC) 1.5 K/uL (0.7-4.9); Absolute Monocytes 1.2 K/uL (0.1-1.3); Absolute Neutrophil 13.1 K/uL (1.8-8.0); Basophils % 0.5 % (0-1.3); Hematocrit 42.9 % (39.6-49.0); Hemoglobin 13.7 g/dL (13.6-17.9); Lymphocytes % 9.5 % (15.3-44.8); MCV 77.9 fL (80-100); MPV 8.1 fL (7.6-11.3); Monocytes % 7.7 % (3.3-12.3); Neutrophils % 81.3 % (41.7-73.7); Platelets 313 thou/uL (152-406); RBC Red Blood Cell Count 5.51 M/uL (4.33-5.43); Red Cell Distribution Width 15.2 % (12.1-15.2)
[2024-09-04 12:50] LABS: ALT/SGPT 18 U/L (16-61); AST/SGOT < 10 U/L (15-37); Albumin 3.6 g/dL (3.4-5.0); Albumin/Globulin Ratio 0.8 (1.1-1.8); Alkaline Phosphatase 123 U/L (45-117); Anion Gap 10.1 mEq/L (5.0-15.0); BUN Blood Urea Nitrogen 12 mg/dL (7-18); Bicarbonate 27 mEq/L (21-32); Bilirubin Total 0.6 mg/dL (0.2-1.0); Globulin 4.8 g/dL (2.3-3.5); Glomerular Filtration Rate 74 ml/min (=/>90); Glucose Level 185 mg/dL (74-106); Lipase 17 U/L (13-75); Potassium 3.1 mEq/L (3.5-5.1); Protein, Total 8.4 g/dL (6.4-8.2); Sodium Level 135 mEq/L (136-145)
--- NOTE | 2024-09-04 13:20 | RAD REPORT ---
EXAM: Right upper quadrant ultrasound. CLINICAL HISTORY: RUQ abd pain COMPARISON: None. FINDINGS: Gallbladder: Prominent shadowing gallstone. Somewhat irregular masslike lesion is seen in the gallbla dder fundus is internal blood flow demonstrated. There is mild thickening of the wall seen with an edematous appearance of the gallbladder wall. Gallbladder wall measures up to 6 mm. Bile ducts: No intrahepatic or extrahepatic biliary dilatation. Common bile duct measures 4 mm. Limited imaging of the liver shows fatty filtration. IMPRESSION: Cholelithiasis with gallbladder wall thickening and edema may indicate acute cholecystitis. Irregular masslike lesion in the fundus of the gallbladder could be a polyp or mass. Internal blood f low is demonstrated.
--- NOTE | 2024-09-04 13:28 | RAD REPORT ---
EXAMINATION: CT ABDOMEN AND PELVIS WITH CONTRAST CLINICAL INDICATION: ABD PAIN TECHNIQUE: CT abdomen and pelvis was performed, after the administration of IV contrast, as per [facility] protocol. Axial, sagittal and coronal reconstructions were obtained. One or more of the following dose reduction techniques were used: Automated exposure control, adjustment of the mA and k V according to patient size, and iterative reconstruction. Unless otherwise specified, incidental findings do not require dedicated imaging follow-up. COMPARISON: No prior exam. FINDINGS: LOWER CHEST: Subtle tree-in-bud opacities are seen in the right lower lobe. Small hiatal hernia. LIVER: Mild fatty liver is present. No focal lesion or biliary dilatation is seen. Distended gallbl adder with mild surrounding inflammation and wall thickening. Several stones are also present. SPLEEN: Normal size. No focal lesion. PANCREAS: No mass, ductal dilation, or arsenio-pancreatic fluid. ADRENALS: Normal; no mass. KIDNEYS: Normal size and contour. No hydronephrosis. GASTROINTESTINAL TRACT: No evidence of free air, significant intra-abdominal free fluid, bowel obstru ction or abscess. APPENDIX: Normal appendix. LYMPH NODES: No lymphadenopathy. MUSCULOSKELETAL: No acute or suspicious osseous abnormality. ADDITIONAL FINDINGS: Large periumbilical fat-containing ventral hernia. No bowel involvement. Fascial defect of 3 cm is noted. IMPRESSION: Acute cholecystitis is probably present. Moderate to large fat-containing periumbilical hernia. Tree-in-bud opacities are indeterminant in the right lower lobe but may be related to aspiration.
--- NOTE | 2024-09-04 14:06 | ER ---
Nurse's Notes [facility] Name: Rich Prakash Age: 53 yrs Sex: Male : 1970 Arrival Date: 09/04/2024 Time: 11:51 Bed 7 Private MD: Diagnosis: Acute cholecystitis;Aspiration pneumonitis Presentation: 09/04 12:01 Chief complaint: Patient states: pain to RUQ and vomiting. Coronavirus screen: aa5 vomiting. Ebola Screen: Patient denies travel to an Ebola-affected area in the 21 days before illness onset. Initial Sepsis Screen: Does the patient meet any 2 criteria? HR > 90 bpm. Does the patient have a suspected source of infection? No. Patient's initial sepsis screen is negative. Risk Assessment: Do you want to hurt yourself or someone else? Patient reports no desire to harm self or others. Onset of symptoms was August 2024. 12:01 Acuity: GRBAIEL 3 aa5 12:01 Method Of Arrival: Ambulatory aa5 Historical: - Allergies: 12:02 Peanut; aa5 - PMHx: 12:02 Hypertension; aa5 12:04 Acid reflux; aa5 - Immunization history:: Adult Immunizations unknown. - Infectious Disease History:: Denies. - Social history:: Smoking status: Patient reports the use of cigarette tobacco products. - Family history:: not pertinent. - Hospitalizations: : No recent hospitalization is reported. Screenin:01 [facility] ED Fall Risk Assessment (Adult) History of falling in the last 3 months, rs5 including since admission No falls in past 3 months (0 pts) Confusion or Disorientation No (0 pts) Intoxicated or Sedated No (0 pts) Impaired Gait No (0 pts) Mobility Assist Device Used No (0 pt) Altered Elimination No (0 pt) Score/Fall Risk Level 0 - 2 = Low Risk Oriented to surroundings, Maintained a safe environment. Abuse screen: Denies threats or abuse. Nutritional screening: No deficits noted. Tuberculosis screening: No symptoms or risk factors identified. Assessment: 12:01 General: Appears in no apparent distress. uncomfortable, Behavior is calm, cooperative. rs5 Pain: Complains of pain in abdomen Pain currently is 8 out of 10 on a pain scale. Quality of pain is described as aching, Is continuous. Neuro: Level of Consciousness is awake, alert, obeys commands, Oriented to person, place, time, situation. Cardiovascular: Patient's skin is warm and dry. Respiratory: Airway is patent Respiratory effort is even, unlabored, Respiratory pattern is regular, symmetrical. GI: Abdomen is round non-distended, Bowel sounds present X 4 quads. Abd is soft and non tender X 4 quads. Reports nausea. : No signs and/or symptoms were reported regarding the genitourinary system. EENT: No signs and/or symptoms were reported regarding the EENT system. Derm: Skin is intact, Skin is pink, warm \T\ dry. Musculoskeletal: Range of motion: intact in all extremities. 13:13 Reassessment: Patient and/or family updated on plan of care and expected duration. Pain rs5 level reassessed. Patient is alert, oriented x 3, equal unlabored respirations, skin warm/dry/pink. Patient states feeling better. 14:17 Reassessment: Patient and/or family updated on plan of care and expected duration. Pain rs5 level reassessed. Patient is alert, oriented x 3, equal unlabored respirations, skin warm/dry/pink. 15:22 Reassessment: No changes from previously documented assessment. rs5 16:05 Reassessment: Patient and/or family updated on plan of care and expected duration. Pain rs5 level reassessed. Patient is alert, oriented x 3, equal unlabored respirations, skin warm/dry/pink. Vital Signs: 12:01 BP 154 / 102; Pulse 98; Resp 16 S; Temp 98.5(O); Pulse Ox 97% on R/A; Weight 83.91 kg aa5 (R); Height 5 ft. 6 in. (R); 13:11 BP 133 / 79; Pulse 80; Resp 16; Pulse Ox 99% on R/A; rs5 15:01 BP 140 / 81; Pulse 88; Resp 17; Pulse Ox 99% on R/A; rs5 16:02 BP 135 / 84; Pulse 84; Resp 17; Pulse Ox 99% on R/A; rs5 12:01 Body Mass Index 29.86 (83.91 kg, 167.64 cm) aa5 ED Course: 11:53 Patient arrived in ED. mg5 11:53 Rodo Power MD is Attending Physician. rn 12:00 Arm band placed on. aa5 12:01 Triage completed. aa5 12:01 Patient has correct armband on for positive identification. Placed in gown. Bed in low rs5 position. Call light in reach. Side rails up X2. 12:01 No provider procedures requiring assistance completed. rs5 12:03 Shalom Brush, RN is Primary Nurse. rs5 12:05 Inserted saline lock: 20 gauge in left antecubital area, using aseptic technique. Blood rs5 collected. Flushed with 10 mL NS. 12:40 US Abdomen Limited In Process Unspecified. EDMS 13:11 CT Abd/Pelvis - IV Contrast Only In Process Unspecified. EDMS 14:05 Luis Suero MD is Hospitalizing Provider. rn 15:10 1502 CM attempted initial assessment, nurse at the bedside performing EKG. 1510 CM met ane with and his Anne at the bedside in the ED exam room. Patient identified by name and . Demographic sheet confirmed. PCP is Mel Guidry BRAND DIRECTOR. No MPOA in place. Patient states he lives at home with his and that prior to admission, he performs ADLs independently. No DME in the home. No HH, no home oxygen or other medical services at this time. His plan is to return home upon discharge and Anne, states she will be his transportation home. CM team will continue to follow and coordinate care. 16:10 Patient admitted, IV remains in place. rs5 Administered Medications: 12:38 Drug: Famotidine IVP 20 mg IVP once; dilute with 10 mL 0.9% NaCl; give over 2 minutes rs5 Route: IVP; Site: left antecubital; 13:05 Follow up: Response: No adverse reaction rs5 12:38 Drug: Ondansetron IVP 4 mg IVP once; over 2 minutes Route: IVP; Site: left antecubital; rs5 13:05 Follow up: Response: No adverse reaction rs5 12:38 Drug: morphine IVP or IV 4 mg IVP once over 4 mins Route: IVP; Infused Over: 4 mins; rs5 Site: left antecubital; 13:01 Follow up: Response: No adverse reaction; Pain is decreased rs5 12:38 Drug: NS 0.9% IV 1000 ml IV at 1 bolus Per protocol; to be given as a bolus over 60 rs5 minutes Route: IV; Rate: 1 bolus; Site: left antecubital; 13:51 Follow up: Response: No adverse reaction; IV Status: Completed infusion; IV Intake: rs5 1000ml 13:37 CANCELLED (Duplicate Order): piperacillin-tazobactam3.375 grams IVPB once over 60 mins; rn (mix in NS 100 mL) 14:23 Drug: Piperacillin-Tazobactam IVPB 3.375 grams IVPB once over 60 mins; (mix in NS 100 rs5 mL) Route: IVPB; Infused Over: 60 mins; Site: left antecubital; 15:01 Follow up: Response: No adverse reaction; IV Status: Completed infusion mb9 Medication: 13:14 VIS not applicable for this client. rs5 Intake: 13:51 IV: 1000ml; Total: 1000ml. rs5 Outcome: 14:06 Decision to Hospitalize by Provider. rn 16:10 Admitted to Med/surg accompanied by tech, with chart, rs5 16:10 Condition: stable rs5 16:10 Instructed on the need for admit, Demonstrated understanding of instructions, 16:16 Patient left the ED. jb4 Signatures: Dispatcher [employer] EDMS Rodo Power MD MD rn Calderon, Audri, RN RN aa5 Calin Iniguez RN RN jb4 Sara Hamm RN RN mb9 Shalom Brush RN RN rs5 Ruth Carl mg5 Cordelia Perez RN RN ane Corrections: (The following items were deleted from the chart) 12:04 12:01 BP 154 / 102; Pulse 98bpm; Resp 16bpm; Spontaneous; Pulse Ox 97% RA; Temp 98.5F aa5 Oral; aa5
--- NOTE | 2024-09-04 14:06 | EDPHYS ---
Physician Documentation [facility] Name: Rich Prakash Age: 53 yrs Sex: Male : 1970 Arrival Date: 09/04/2024 Time: 11:51 Bed 7 Private MD: ED Physician Rodo Power HPI: 09/04 13:56 This 53 yrs old Male presents to ER via Ambulatory with complaints of rn Abdominal Pain. 13:56 The patient presents with abdominal pain in the right upper quadrant. Onset: The rn symptoms/episode began/occurred last night. The symptoms do not radiate. Associated signs and symptoms: Pertinent positives: nausea and vomiting, anorexia, Pertinent negatives: chest pain. Modifying factors: The symptoms are alleviated by nothing, the symptoms are aggravated by food, touching the area. Severity of pain: At its worst the pain was moderate in the emergency department the pain is unchanged. The patient has not experienced similar symptoms in the past. The patient has not recently seen a physician. Patient reports right upper quadrant abdominal pain that began last night after eating tacos. Associated with nausea vomiting and anorexia. No fever. No blood in stool. Also reports chronic acid reflux. Historical: - Allergies: 12:02 Peanut; aa5 - PMHx: 12:02 Hypertension; aa5 12:04 Acid reflux; aa5 - Immunization history:: Adult Immunizations unknown. - Infectious Disease History:: Denies. - Social history:: Smoking status: Patient reports the use of cigarette tobacco products. - Family history:: not pertinent. - Hospitalizations: : No recent hospitalization is reported. ROS: 13:56 Constitutional: Negative for fever, chills, and weight loss, Cardiovascular: Negative rn for chest pain, palpitations, and edema, Respiratory: Negative for shortness of breath, cough, wheezing, and pleuritic chest pain, Abdomen/GI: Positive for abdominal pain with vomiting MS/Extremity: Negative for injury and deformity, Skin: Negative for injury, rash, and discoloration, Neuro: Negative for headache, weakness, numbness, tingling, and seizure, Exam: 13:56 Constitutional: This is a well developed, well nourished patient who is awake, alert, rn appears uncomfortable Cardiovascular: Regular rate and rhythm. No pulse deficits. Respiratory: No increased work of breathing, no retractions or nasal flaring. Abdomen/GI: Soft, right upper quadrant tenderness with positive Locke 15:16 ECG was reviewed by the Attending Physician. rn Vital Signs: 12:01 BP 154 / 102; Pulse 98; Resp 16 S; Temp 98.5(O); Pulse Ox 97% on R/A; Weight 83.91 kg aa5 (R); Height 5 ft. 6 in. (R); 13:11 BP 133 / 79; Pulse 80; Resp 16; Pulse Ox 99% on R/A; rs5 15:01 BP 140 / 81; Pulse 88; Resp 17; Pulse Ox 99% on R/A; rs5 16:02 BP 135 / 84; Pulse 84; Resp 17; Pulse Ox 99% on R/A; rs5 12:01 Body Mass Index 29.86 (83.91 kg, 167.64 cm) aa5 MDM: 11:53 Medical Screening Exam initiated rn 13:56 Differential diagnosis: cholecystitis, Cholelithiasis, gastritis, gastroesophageal rn reflux disease, non-specific abd pain, pancreatitis, Peptic Ulcer Disease, Perf. Duodenal Ulcer, Perf. Gastric Ulcer. Data reviewed: vital signs, nurses notes, lab test result(s), radiologic studies, CT scan, ultrasound, and as a result, I will admit patient. Consideration of Admission/Observation Patient was admitted/placed on observation. Escalation of care including admission/observation considered. Counseling: I had a detailed discussion with the patient and/or guardian regarding the historical points, exam findings, and any diagnostic results supporting the discharge/admit diagnosis, lab results, radiology results, the need for further work-up and treatment in the hospital. Special discussion: Based on the patient's Hx, exam, and Dx evaluation, there is no indication for emergent surgery or inpatient Tx. It is understood by the patient/guardian that if the Sx's persist or worsen they need to return immediately for re-evaluation. I discussed with the patient/guardian in detail that at this point there is no indication for admission to the hospital. It is understood, however, that if the symptoms persist or worsen the patient needs to return immediately for re-evaluation. 09/04 12:05 Order name: CBC with Diff; Complete Time: 13:34 rn 09/04 12:05 Order name: CMP; Complete Time: 13:34 rn 09/04 12:05 Order name: Lipase; Complete Time: 13:34 rn 11/18 13:38 Order name: Blood Culture Adult (2) rn 09/04 13:38 Order name: Lactate w/ 2H reflex if indic.; Complete Time: 14:53 rn 09/04 13:38 Order name: Protime (+inr); Complete Time: 14:53 rn 09/04 13:38 Order name: Ptt, Activated; Complete Time: 14:53 rn 09/04 14:41 Order name: CBC with Automated Diff EDMS 09/04 14:41 Order name: CBC with Automated Diff EDMS 09/04 14:41 Order name: Comprehensive Metabolic Panel EDMS 09/04 14:41 Order name: Comprehensive Metabolic Panel EDMS 09/04 14:41 Order name: Lipid Profile EDMS 09/04 14:41 Order name: Lipid Profile EDMS 09/04 14:41 Order name: Protime (+INR) EDMS 09/04 14:41 Order name: Protime (+INR) EDMS 09/04 14:41 Order name: PTT, Activated Partial Thromb EDMS 09/04 14:41 Order name: PTT, Activated Partial Thromb EDMS 09/04 14:41 Order name: Troponin High Sensitivity EDMS 09/04 14:41 Order name: Troponin High Sensitivity EDMS 09/04 14:41 Order name: Troponin High Sensitivity EDMS 09/04 14:41 Order name: Troponin High Sensitivity EDMS 09/04 14:46 Order name: Basic Metabolic Panel EDMS 09/04 14:46 Order name: Basic Metabolic Panel EDMS 09/04 14:46 Order name: Lipase EDMS 09/04 14:46 Order name: Lipase EDMS 09/04 14:46 Order name: Liver (Hepatic) Function EDMS 09/04 14:46 Order name: Liver (Hepatic) Function EDMS 09/04 14:46 Order name: Magnesium EDMS 09/04 14:46 Order name: Magnesium EDMS 09/04 12:05 Order name: CT Abd/Pelvis - IV Contrast Only; Complete Time: 13:34 rn 09/04 12:05 Order name: US Abdomen Limited; Complete Time: 13:34 rn 09/04 13:38 Order name: EKG; Complete Time: 13:38 rn 09/04 14:41 Order name: CONS Physician Consult EDMS 09/04 12:05 Order name: IV Saline Lock; Complete Time: 12:38 rn 09/04 12:05 Order name: Labs collected and sent; Complete Time: 12:38 rn 09/04 13:38 Order name: Accucheck; Complete Time: 14:23 rn 09/04 13:38 Order name: Cardiac monitoring; Complete Time: 14:23 rn 09/04 13:38 Order name: IV Saline Lock - Large Bore; Complete Time: 14:23 rn 09/04 13:38 Order name: O2 Per Protocol; Complete Time: 14:23 rn 09/04 13:38 Order name: O2 Sat Monitoring; Complete Time: 15:01 rn 09/04 13:38 Order name: Vital Signs; Complete Time: 14:23 rn EC:16 Rate is 79 beats/min. Rhythm is regular. QRS [place] is Normal. MT interval is normal. QRS rn interval is normal. QT interval is normal. No Q waves. T waves are Normal. No ST changes noted. Clinical impression: Normal ECG. Interpreted by me. Reviewed by me. Administered Medications: 12:38 Drug: Famotidine IVP 20 mg IVP once; dilute with 10 mL 0.9% NaCl; give over 2 minutes rs5 Route: IVP; Site: left antecubital; 13:05 Follow up: Response: No adverse reaction rs5 12:38 Drug: Ondansetron IVP 4 mg IVP once; over 2 minutes Route: IVP; Site: left antecubital; rs5 13:05 Follow up: Response: No adverse reaction rs5 12:38 Drug: morphine IVP or IV 4 mg IVP once over 4 mins Route: IVP; Infused Over: 4 mins; rs5 Site: left antecubital; 13:01 Follow up: Response: No adverse reaction; Pain is decreased rs5 12:38 Drug: NS 0.9% IV 1000 ml IV at 1 bolus Per protocol; to be given as a bolus over 60 rs5 minutes Route: IV; Rate: 1 bolus; Site: left antecubital; 13:51 Follow up: Response: No adverse reaction; IV Status: Completed infusion; IV Intake: rs5 1000ml 13:37 CANCELLED (Duplicate Order): piperacillin-tazobactam3.375 grams IVPB once over 60 mins; rn (mix in NS 100 mL) 14:23 Drug: Piperacillin-Tazobactam IVPB 3.375 grams IVPB once over 60 mins; (mix in NS 100 rs5 mL) Route: IVPB; Infused Over: 60 mins; Site: left antecubital; 15:01 Follow up: Response: No adverse reaction; IV Status: Completed infusion mb9 Disposition Summary: 09/04/24 14:06 Hospitalization Ordered Notes: Hospitalization Status: Inpatient Admission rn Provider: Luis Suero [facility] Condition: Stable rn Problem: new rn Symptoms: have improved rn Bed/Room Type: Standard rn Room Assignment: 219(09/04/24 14:47) bd Diagnosis - Acute cholecystitis rn - Aspiration pneumonitis rn Forms: - Medication Reconciliation Form rn - SBAR form rn - Leadership Thank You Letter rn Signatures: Dispatcher [employer] EDMS Katrina Flaherty Roman, MD MD rn Calderon, Audri RN RN aa5 Shalom Brush RN RN rs5 Sara Hamm RN mb9 Corrections: (The following items were deleted from the chart) 12:06 12:06 CBC+H.LAB.BRZ ordered. EDMS EDMS 12:06 12:06 COMPREHENSIVE METABOLIC PANEL+C.LAB.BRZ ordered. EDMS EDMS 12:06 12:06 LIPASE+C.LAB.BRZ ordered. EDMS EDMS 12:06 12:06 Abdomen Pelvis W Con+CT.RAD.BRZ ordered. EDMS EDMS 12:06 12:06 Abdomen Limited+US.RAD.BRZ ordered. EDMS EDMS 13:37 13:37 Piperacillin-Tazobactam IVPB 3.375 grams IVPB once over 60 mins; (mix in NS 100 rn mL) ordered. rn 14:47 14:06 rn bd
[2024-09-04] MEDS ORDERED: NA CHLORIDE 0.9% 0 ML ONE (14:09)
[2024-09-04] MEDS ORDERED: PIPERACIL/TAZO 3.375 GM VIAL IV ONE (14:10)
[2024-09-04 14:25] LABS: PT Prothrombin Time 13.1 SECONDS (9.4-12.5); PTT, Activated Partial Thromb 34.2 SECONDS (24.3-36.9); Protime INR 1.18
[2024-09-04] MEDS ORDERED: MORPHINE 2 MG/ML SYR IV PRN (14:33)
[2024-09-04] MEDS ORDERED: ACETAMINOPHEN 500 MG TAB PO PRN (14:33)
[2024-09-04] MEDS ORDERED: ONDANSETRON 4 MG/2 ML VIAL IV PRN (14:33)
[2024-09-04] MEDS ORDERED: PROMETHAZINE INJ 25 MG/ML AMP IV PRN (14:36)
--- NOTE | 2024-09-04 14:36 | P.HP ---
Certification for Inpatient Patient admitted to: Inpatient With expected LOS: >2 Midnights Patient will require the following post-hospital care: None Practitioner: I am a practitioner with admitting privileges, knowledge of patient current condition, hospital course, and medical plan of care. Services: Services provided to patient in accordance with Admission requirements found in Title 42 Section 412.3 of the Code of Federal Regulations Patient History Date of Service: 09/04/24 Reason for admission: Acute cholecystitis, aspiration pneumonia History of Present Illness: Mr. Prakash is a 53-year-old gentleman with a past medical history of hypertension, prediabetes, and GERD. He is a heavy alcohol and cigarette user. Alcohol is usually consumed on the weekends. He began having right upper quadrant abdominal pain on Wednesday and woke up this morning at 2 AM with significant abdominal pain and vomiting. He went to his PCP where he continued vomiting and was directed to the emergency department. He is noted to have an elevated white count at 16.[address] imaging shows acute cholecystitis and a moderate to large fat-containing periumbilical hernia. He received 1 L bolus and 3.375 g of Zosyn in the emergency department and will be admitted for consultation with Dr. Silva. US imaging shows the above findings but also shows, "Irregular masslike lesion in the fundus of the gallbladder could be a polyp or mass. Internal blood flow is demonstrated." Discussed with Dr. Silva, recommends MRCP to better characterize this "masslike lesion" Allergies No Known Drug Allergies Allergy (Unverified 02/16/15 08:30) Unknown Peanut Allergy (Uncoded 01/17/18 18:17) Unknown Home medications list reviewed: Yes (Losartan 25mg and Omeprazole) - Past Medical/Surgical History Has patient received pneumonia vaccine in the past: No -: Hypertension -: Prediabetes -: GERD -: Umbilical hernia -: Tobacco abuse -: Alcohol abuse Past Surgical History: Patient denies surgical history Psychosocial/ Personal History: Lives at home with his - Social History Smoking Status: Current every day smoker Smoking therapy provided: Yes Patient receptive to therapy: No Alcohol use: Yes CD- Drugs: No Caffeine use: Yes Place of Residence: Home Review of Systems 10-point ROS is otherwise unremarkable General: Unremarkable Eyes: Unremarkable ENT: Unremarkable Respiratory: Unremarkable Cardiovascular: Unremarkable Gastrointestinal: Nausea, Vomiting, Abdominal Pain, As per HPI Genitourinary: Unremarkable Musculoskeletal: Unremarkable Integumentary: Unremarkable Neurological: Unremarkable Lymphatics: Unremarkable Physical Examination - Vital Signs Blood Pressure: 163/102 Pulse: 75 Respirations: 20 Pulse Ox (%): 99 - Physical Exam General: Alert, In no apparent distress, Oriented x3 HEENT: Atraumatic, Normocephalic Neck: Supple Respiratory: Clear to auscultation bilaterally Cardiovascular: Normal pulses, Regular rate/rhythm, Normal S1 S2 Capillary refill: <2 Seconds Gastrointestinal: Normal bowel sounds, Other (large reducible umbilical hernia), Tenderness (RUQ) Musculoskeletal: No clubbing, No swelling Integumentary: No rashes Neurological: Normal speech, Normal tone, Normal affect Lymphatics: No axilla or inguinal lymphadenopathy External genitalia: Deferred Rectal: Deferred - Studies Laboratory Data (last 24 hrs) 09/04/24 09/04/24 09/04/24 14:05 12:20 12:20 WBC 16.10 H Hgb 13.7 Hct 42.9 Plt Count 313 PT 13.1 H INR 1.18 APTT 34.2 Sodium 135 L Potassium 3.1 L BUN 12 Creatinine 1.18 Glucose 185 H Total Bilirubin 0.6 AST < 10 L ALT 18 Alkaline Phosphatase 123 H Lipase 17 Assessment and Plan - Plan Acute cholecystitis Umbilical hernia Aspiration pneumonia Hypertension Heavy alcohol use, heavy tobacco use Plan Aggressive IV hydration Zosyn 3.375gm IV q 8h Pain control Monitor for perforation Surgery consult - Dr. Silva NPO I-S I&O T,C, DB Abdominal binder MRCP - to eval "masslike lesion" in fundus of GB Hypokalemia Replete potassium of 3.1 and reassess GERD Protonix 40mg IV BID ETOH/Cigarette abuse Valium 10mg IV x 1 and reassess BP Pt states he has never experienced DTs Nicoderm Prediabetes FSBS monitoring and SSI coverage VTE SCDs Discharge Plan: Home Plan to discharge in: 48 Hours - Advance Directives Does patient have a Living Will: No Does patient have a Durable POA for Healthcare: No - Code Status/Comfort Care Code Status Assessed: Yes (Full) Critical Care: No
[2024-09-04] MEDS: DIAZEPAM 10 MG/2 ML INJ SYRINGE IV ONE (14:51)
[2024-09-04] MEDS ORDERED: NA CHLORIDE 0.9% 1,000 ML IV SCH (15:00)
[2024-09-04] MEDS ORDERED: D10W 125 ML IV PRN (15:36)
[2024-09-04] MEDS ORDERED: GLUCAGON 1 MG/VIAL IM PRN (15:36)
[2024-09-04 16:25] VITALS: O2SAT 97
[2024-09-04 16:37] VITALS: BMI 29.8
[2024-09-04] MEDS: NA CHLORIDE 0.9% 1,000 ML IV SCH (17:01)
[2024-09-04] MEDS: PIPER TAZO 3.375 GM in NA CHLORIDE 0.9% 100 ML IV SCH (17:09)
[2024-09-04] MEDS: KCL 20 MEQ/100 mL IVPB 20 MEQ/100 ML BAG IV SCH (17:10)
[2024-09-04] MEDS: INSULIN REGULAR (HUMAN) 100 UNIT/ML SQ SCH (18:00)
[2024-09-05 04:24] LABS: Absolute Basophils 0.1 K/uL (0-0.5); Absolute Eosinophils 0.3 K/uL (0-0.5); Absolute Lymphocytes (CBC) 1.7 K/uL (0.7-4.9); Absolute Monocytes 0.9 K/uL (0.1-1.3); Absolute Neutrophil 9.4 K/uL (1.8-8.0); Basophils % 0.8 % (0-1.3); Eosinophils % 2.8 % (0-4.4); Hematocrit 37.3 % (39.6-49.0); Hemoglobin 12.1 g/dL (13.6-17.9); Lymphocytes % 13.5 % (15.3-44.8); MCH 25.4 pg (27.0-35.0); MCHC 32.6 g/dL (32.0-36.0); MPV 7.6 fL (7.6-11.3); Monocytes % 7.4 % (3.3-12.3); Neutrophils % 75.5 % (41.7-73.7); Platelets 262 thou/uL (152-406); RBC Red Blood Cell Count 4.78 M/uL (4.33-5.43); Red Cell Distribution Width 15.1 % (12.1-15.2)
[2024-09-05 04:30] LABS: PT Prothrombin Time 13.3 SECONDS (9.4-12.5); PTT, Activated Partial Thromb 33.9 SECONDS (24.3-36.9); Protime INR 1.19
[2024-09-05 04:47] LABS: Albumin/Globulin Ratio 0.8 (1.1-1.8); Bilirubin Direct 0.2 mg/dL (0-0.2); Bilirubin Indirect, Calculated 0.6 mg/dL (0.2-0.8); Bilirubin Total 0.8 mg/dL (0.2-1.0); Magnesium 1.9 mg/dL (1.6-2.4); Troponin High Sensitivity 3.4 pg/mL (<58.9)
[2024-09-05] MEDS: LOSARTAN POTASSIUM 50 MG TABLET PO SCH (09:07)
[2024-09-05] MEDS: NICOTINE 14 MG/PAT TD SCH (09:08)
--- NOTE | 2024-09-05 12:20 | RAD REPORT ---
EXAMINATION: MR CHOLANGIOGRAM CLINICAL INDICATION: Male, 53 years old. Masslike lesion in fundus of gb TECHNIQUE: Multiplanar, multisequence MR imaging of the abdomen without intravenous contrast, and wit h specific attention to the biliary system. Unless otherwise specified, incidental findings do not require dedicated imaging follow-up. 3D MIP reconstruction performed. COMPARISON: 09/04/2024 FINDINGS: GALLBLADDER: Multiple stones are present. Gallbladder wall is thickened to 10 mm. Focal soft tissue l esion seen in the fundus region measuring up to 13 mm. BILE DUCTS: No biliary ductal dilatation. LIVER: Normal in size, contour, and signal without evidence of fatty infiltration or iron deposition. No focal lesion. PANCREAS: Normal signal. No mass, ductal dilation, or arsenio-pancreatic fluid. LYMPH NODES: No lymphadenopathy. ADDITIONAL FINDINGS: None. IMPRESSION: Multi-stone cholelithiasis is seen with gallbladder wall thickening up to 10 mm, which would be sugge stive of acute cholecystitis in the correct clinical setting. Focal soft tissue lesion is seen in the gallbladder fundus measuring up to 13 mm. This correlates wit h recent gallbladder sonography.
[2024-09-05] MEDS: MORPHINE 4 MG/ML SYR IV PRN (13:17)
[2024-09-05] MEDS: HYDRALAZINE HCL 20 MG/ML VIAL IV PRN (16:11)
--- NOTE | 2024-09-05 17:25 | P.PN ---
Date of Service: 09/05/24 Subjective Slept okay, hungry, will have liquids post MRCP and then re-eval for OR Review of Systems 10-point ROS is otherwise unremarkable General: Unremarkable Eyes: Unremarkable ENT: Unremarkable Respiratory: Unremarkable Cardiovascular: Unremarkable Gastrointestinal: Nausea, Vomiting, Abdominal Pain, As per HPI Genitourinary: Unremarkable Musculoskeletal: Unremarkable Integumentary: Unremarkable Neurological: Unremarkable Lymphatics: Unremarkable Physical Examination - Vital Signs reviewed - Physical Exam General: Alert, In no apparent distress, Oriented x3 HEENT: Atraumatic, Normocephalic Neck: Supple Respiratory: Clear to auscultation bilaterally Cardiovascular: Normal pulses, Regular rate/rhythm, Normal S1 S2 Capillary refill: <2 Seconds Gastrointestinal: Normal bowel sounds, Other (large reducible umbilical hernia), Tenderness (RUQ) Musculoskeletal: No clubbing, No swelling Integumentary: No rashes Neurological: Normal speech, Normal tone, Normal affect Lymphatics: No axilla or inguinal lymphadenopathy External genitalia: Deferred Rectal: Deferred - Studies Laboratory Data (last 24 hrs) 09/04/24 09/04/24 09/04/24 14:05 12:20 12:20 WBC 16.10 H Hgb 13.7 Hct 42.9 Plt Count 313 PT 13.1 H INR 1.18 APTT 34.2 Sodium 135 L Potassium 3.1 L BUN 12 Creatinine 1.18 Glucose 185 H Total Bilirubin 0.6 AST < 10 L ALT 18 Alkaline Phosphatase 123 H Lipase 17 Assessment and Plan - Plan Acute cholecystitis Umbilical hernia Aspiration pneumonia Hypertension Heavy alcohol use, heavy tobacco use Plan Aggressive IV hydration Zosyn 3.375gm IV q 8h Pain control Monitor for perforation Surgery consult - Dr. Silva discussed plan. NPO post MN for cholecystectomy NPO for MRCP 09/05/24 I-S I&O T,C, DB Abdominal binder MRCP - to eval "masslike lesion" in fundus of GB Hypokalemia Replete potassium of 3.1 and reassess GERD Protonix 40mg IV BID ETOH/Cigarette abuse Valium 10mg IV x 1 and reassess BP Pt states he has never experienced DTs Nicoderm Prediabetes FSBS monitoring and SSI coverage VTE SCDs Discharge Plan: Home Plan to discharge in: 48 Hours - Advance Directives Does patient have a Living Will: No Does patient have a Durable POA for Healthcare: No - Code Status/Comfort Care Code Status Assessed: Yes (Full) Critical Care: No
--- NOTE | 2024-09-06 11:07 | P.PN ---
Date of Service: 09/06/24 Subjective Slept okay, hungry, will have liquids post MRCP and then re-eval for OR. MRCP showed fundal gallbladder mass. Will try to treat conservatively and calm the gallbladder and pt will need eval/surgery for possible malignancy Review of Systems 10-point ROS is otherwise unremarkable General: Unremarkable Eyes: Unremarkable ENT: Unremarkable Respiratory: Unremarkable Cardiovascular: Unremarkable Gastrointestinal: unremarkable Genitourinary: Unremarkable Musculoskeletal: Unremarkable Integumentary: Unremarkable Neurological: Unremarkable Lymphatics: Unremarkable Physical Examination - Vital Signs reviewed - Physical Exam General: Alert, In no apparent distress, Oriented x3 HEENT: Atraumatic, Normocephalic Neck: Supple Respiratory: Clear to auscultation bilaterally Cardiovascular: Normal pulses, Regular rate/rhythm, Normal S1 S2 Capillary refill: <2 Seconds Gastrointestinal: Normal bowel sounds, Other (large reducible umbilical hernia), Tenderness (RUQ) improving Musculoskeletal: No clubbing, No swelling Integumentary: No rashes Neurological: Normal speech, Normal tone, Normal affect Lymphatics: No axilla or inguinal lymphadenopathy External genitalia: Deferred Rectal: Deferred Assessment and Plan - Plan Acute cholecystitis Umbilical hernia Aspiration pneumonia Hypertension Heavy alcohol use, heavy tobacco use Plan Aggressive IV hydration Zosyn 3.375gm IV q 8h Pain control Monitor for perforation Surgery consult - Dr. Silva discussed plan. NPO post [place] 19th for MRCP NPO for MRCP 09/05/24 I-S I&O T,C, DB Abdominal binder MRCP - to eval "masslike lesion" in fundus of GB, will try conservative cholecystitis tx clear liquid diet - target 1800cal/d with strict very low fat diet Hypertension Restart home medications Hypokalemia Replete potassium of 3.1 and reassess GERD Protonix 40mg IV BID ETOH/Cigarette abuse Valium 10mg IV x 1 and reassess BP Pt states he has never experienced DTs Nicoderm replaced Prediabetes FSBS monitoring and SSI coverage VTE SCDs Discharge Plan: Home Plan to discharge in: 48 Hours - Advance Directives Does patient have a Living Will: No Does patient have a Durable POA for Healthcare: No - Code Status/Comfort Care Code Status Assessed: Yes (Full) Critical Care: No
[2024-09-06] MEDS ORDERED: SODIUM CHLORIDE 0.9% 10ML INJ IV PRN (13:36)
[2024-09-06] MEDS: PANTOPRAZOLE 40 MG INJ IVP ONE (13:55)
[2024-09-07 08:17] LABS: Absolute Eosinophils 0.4 K/uL (0-0.5); Absolute Lymphocytes (CBC) 1.5 K/uL (0.7-4.9); Absolute Monocytes 0.8 K/uL (0.1-1.3); Absolute Neutrophil 5.6 K/uL (1.8-8.0); Basophils % 0.5 % (0-1.3); Eosinophils % 4.3 % (0-4.4); Hematocrit 34.1 % (39.6-49.0); Hemoglobin 11.2 g/dL (13.6-17.9); Lymphocytes % 17.9 % (15.3-44.8); MCH 25.5 pg (27.0-35.0); MCHC 32.9 g/dL (32.0-36.0); MCV 77.5 fL (80-100); MPV 7.7 fL (7.6-11.3); Monocytes % 9.1 % (3.3-12.3); Neutrophils % 68.2 % (41.7-73.7); Nucleated Red Blood Cells % 0.1 % (0-0); Platelets 277 thou/uL (152-406); Red Cell Distribution Width 14.6 % (12.1-15.2)
[2024-09-07 08:22] LABS: Albumin 2.6 g/dL (3.4-5.0); Albumin/Globulin Ratio 0.7 (1.1-1.8); Anion Gap 6.7 mEq/L (5.0-15.0); Bilirubin Total 0.7 mg/dL (0.2-1.0); Globulin 3.9 g/dL (2.3-3.5); Potassium 3.7 mEq/L (3.5-5.1); Protein, Total 6.5 g/dL (6.4-8.2)
[2024-09-07] MEDS ORDERED: SODIUM CHLORIDE 0.9% 10ML INJ IV PRN (11:45)
--- NOTE | 2024-09-07 11:48 | P.PN ---
Date of Service: 09/07/24 Subjective Slept okay, hungry, treat conservatively and calm the gallbladder and pt will need eval/surgery for possible malignancy as outpatient in liver center. No overnight events Review of Systems 10-point ROS is otherwise unremarkable General: Unremarkable Eyes: Unremarkable ENT: Unremarkable Respiratory: Unremarkable Cardiovascular: Unremarkable Gastrointestinal: unremarkable Genitourinary: Unremarkable Musculoskeletal: Unremarkable Integumentary: Unremarkable Neurological: Unremarkable Lymphatics: Unremarkable Physical Examination - Vital Signs reviewed - Physical Exam General: Alert, In no apparent distress, Oriented x3 HEENT: Atraumatic, Normocephalic Neck: Supple Respiratory: Clear to auscultation bilaterally Cardiovascular: Normal pulses, Regular rate/rhythm, Normal S1 S2 Capillary refill: <2 Seconds Gastrointestinal: Normal bowel sounds, Other (large reducible umbilical hernia), Tenderness (RUQ) improving Musculoskeletal: No clubbing, No swelling Integumentary: No rashes Neurological: Normal speech, Normal tone, Normal affect Lymphatics: No axilla or inguinal lymphadenopathy External genitalia: Deferred Rectal: Deferred Assessment and Plan - Plan Acute cholecystitis Umbilical hernia Aspiration pneumonia Hypertension Heavy alcohol use, heavy tobacco use Plan Aggressive IV hydration Zosyn 3.375gm IV q 8h Pain control Monitor for perforation Surgery consult - Dr. Silva discussed plan. NPO post [place] 19th for MRCP, on hold for try conservative management I-S I&O T,C, DB Abdominal binder MRCP - to eval "masslike lesion" in fundus of GB, will try conservative cholecystitis tx clear liquid diet - target 1800cal/d with strict very low fat diet Hypertension Restart home medications Hypokalemia Replete potassium of 3.1 and reassess GERD Protonix 40mg IV BID ETOH/Cigarette abuse Valium 10mg IV x 1 and reassess BP Pt states he has never experienced DTs Nicoderm replaced Prediabetes FSBS monitoring and SSI coverage VTE SCDs Discharge Plan: Home Plan to discharge in: 48 Hours - Advance Directives Does patient have a Living Will: No Does patient have a Durable POA for Healthcare: No - Code Status/Comfort Care Code Status Assessed: Yes (Full) Critical Care: No
[2024-09-07] MEDS: INSULIN REGULAR (HUMAN) 100 UNIT/ML SQ SCH (16:30)
--- NOTE | 2024-09-07 18:48 | P.DS ---
Admission Date: 09/04/24 Discharge Date: 09/08/24 Disposition: ROUTINE DISCHARGE Discharge Condition: GOOD Reason for Admission: Acute cholecystitis, aspiration pneumonia Consultations: Dr. Silva Procedures: none Brief History of Present Illness: Mr. Prakash is a 53-year-old gentleman with a past medical history of hypertension, prediabetes, and GERD. He is a heavy alcohol and cigarette user. Alcohol is usually consumed on the weekends. He began having right upper quadrant abdominal pain on Wednesday and woke up this morning at 2 AM with significant abdominal pain and vomiting. He went to his PCP where he continued vomiting and was directed to the emergency department. He is noted to have an elevated white count at 16.[address] imaging shows acute cholecystitis and a moderate to large fat-containing periumbilical hernia. He received 1 L bolus and 3.375 g of Zosyn in the emergency department and will be admitted for consultation with Dr. Silva. US imaging shows the above findings but also shows, "Irregular masslike lesion in the fundus of the gallbladder could be a polyp or mass. Internal blood flow is demonstrated." Discussed with Dr. Silva, recommends MRCP to better characterize this "masslike lesion" Hospital Course: Cholecystitis symptoms have improved with change in patient's diet, antibiotics, and IV fluids. Dr. Silva spoke to Mr. Prakash at length regarding need for higher level of care to evaluate fundal mass in the gallbladder. They discussed possibility of cholangiocarcinoma or simply a gallbladder polyp. Either way, patient needs conservative treatment for a short term while planning follow-up with a liver specialist. Mr. Prakash will need to continue po antibiotics, continue on a very strict low fat diet, and call liver specialists for an urgent evaluation. Dr. Silva discussed with the patient that names and numbers of specialists would be contacted and given to the patient and family. Vital Signs/Physical Exam: Temp Pulse Resp BP Pulse Ox 97.1 F 77 20 162/97 H 97 09/07/24 16:00 09/07/24 16:00 09/07/24 16:00 09/07/24 16:00 09/07/24 16:00 General: Alert, In no apparent distress, Oriented x3 HEENT: Atraumatic, Normocephalic Respiratory: Clear to auscultation bilaterally, Normal air movement Cardiovascular: Regular rate/rhythm, Normal S1 S2 Capillary refill: <2 Seconds Gastrointestinal: No tenderness, No guarding, Other (reducible umbilical hernia) Musculoskeletal: No clubbing Integumentary: No rashes Neurological: Normal speech, Normal tone, Normal affect Lymphatics: No axilla or inguinal lymphadenopathy External genitalia: Deferred Rectal: Deferred Laboratory Data at Discharge: WBC 8.30 thou/uL (4.3-10.9) 09/07/24 07:40 Hgb 11.2 g/dL (13.6-17.9) L 09/07/24 07:40 Hct 34.1 % (39.6-49.0) L 09/07/24 07:40 Plt Count 277 thou/uL (152-406) 09/07/24 07:40 PT 13.3 SECONDS (9.4-12.5) H 09/05/24 04:08 INR 1.19 09/05/24 04:08 APTT 33.9 SECONDS (24.3-36.9) 09/05/24 04:08 Sodium 138 mEq/L (136-145) 09/07/24 07:40 Potassium 3.7 mEq/L (3.5-5.1) 09/07/24 07:40 BUN 7 mg/dL (7-18) 09/07/24 07:40 Creatinine 0.88 mg/dL (0.70-1.30) 09/07/24 07:40 Glucose 100 mg/dL (74-106) 09/07/24 07:40 Magnesium 1.9 mg/dL (1.6-2.4) 09/05/24 04:08 Total Bilirubin 0.7 mg/dL (0.2-1.0) 09/07/24 07:40 AST 15 U/L (15-37) 09/07/24 07:40 ALT 28 U/L (16-61) 09/07/24 07:40 Alkaline Phosphatase 109 U/L (45-117) 09/07/24 07:40 Triglycerides 94 mg/dL (<150) 09/05/24 04:08 Cholesterol 179 mg/dL (<200) 09/05/24 04:08 HDL Cholesterol 49 mg/dL (40-60) 09/05/24 04:08 Cholesterol/HDL Ratio 3.65 09/05/24 04:08 Lipase 20 U/L (13-75) 09/07/24 07:40 Home Medications: Losartan Potassium 50 mg PO DAILY 09/04/24 Omeprazole [Prilosec] 40 mg PO DAILY 09/04/24 Atorvastatin Calcium 10 mg PO BEDTIME 09/05/24 Amox/Clavulanate [Augmentin 875-125 Tab] 1 each PO BID #20 tab 09/07/24 Losartan Potassium [Cozaar*] 25 mg PO DAILY 09/07/24 New Medications: Amox/Clavulanate [Augmentin 875-125 Tab] 1 each PO BID #20 tab Physician Discharge Instructions: Mr. Prakash is a 53-year-old gentleman with a past medical history of hypertension, prediabetes, and GERD. He is a heavy alcohol and cigarette user. Alcohol is usually consumed on the weekends. He began having right upper quadrant abdominal pain on Wednesday and woke up this morning at 2 AM with significant abdominal pain and vomiting. He went to his PCP where he continued vomiting and was directed to the emergency department. He is noted to have an elevated white count at 16.[address] imaging shows acute cholecystitis and a moderate to large fat-containing periumbilical hernia. He received 1 L bolus and 3.375 g of Zosyn in the emergency department and will be admitted for consultation with Dr. Silva. US imaging shows the above findings but also shows, "Irregular masslike lesion in the fundus of the gallbladder could be a polyp or mass. Internal blood flow is demonstrated." Discussed with Dr. Silva, recommends MRCP to better characterize this "masslike lesion" Hospital Course: Cholecystitis symptoms have improved with change in patient's diet, antibiotics, and IV fluids. Dr. Silav spoke to Mr. Prakash at length regarding need for higher level of care to evaluate fundal mass in the gallbladder. They discussed possibility of cholangiocarcinoma or simply a gallbladder polyp. Either way, patient needs conservative treatment for a short term while planning follow-up with a liver specialist. Mr. Prakash will need to continue po antibiotics, continue on a very strict low fat diet, and call liver specialists for an urgent evaluation. Dr. Silva discussed with the patient that names and numbers of specialists would be contacted and given to the patient and family. New prescriptions: Augmentin 875 mg p.o. twice daily x 10 days #20 Follow-up with surgery in 1 week Continue home medicines as previously prescribed GOAL: Clear understanding of disease process Diet: Extremely low-fat Activity: Fall precautions INSTRUCTIONS: Physician Discharge Instructions: Okay to DC IV and DC home Follow-up with primary care provider in 1 to 2 weeks Follow-up with Dr. Silva in 1 week and try to make an appointment with a liver specialist urgently Please call the inpatient unit for any questions or concerns regarding hospital stay Return to the ER for worsening symptoms Diet: low fat Activity: Ad sadi Followup: Mel Giudry NP [Primary Care Provider] - Paul Silva MD [ACTIVE - CAN ADMIT] -
[2024-09-07] MEDS: PANTOPRAZOLE 40 MG INJ IVP SCH (21:04)
--- NOTE | 2024-09-07 21:40 | PN ---
Date of Progress Note: 09/07/2024 Diagnoses: Acute cholecystitis, gallbladder mass. Subjective: The patient is doing well. He is tolerating diet, afebrile. No shortness of breath. N o chest pain. Objective: Chest: Clear. Abdomen: Soft and depressible. No guarding, rebound. No Locke signs. Plan: I discussed with him surgical options. Obviously, we understand that in of the tests that we did, it could be a gallbladder mass, so he will be having counselor at law in [place], where we can also have liver capabilities in case that gallbladder mass could be a neoplasm. He preferred that way, but in the meantime we are trying to see if we can improve his cholecystitis, to see if he tolerates diet an d keeping in the antibiotics. If he tolerates that, then he had that option. If not, then he may vega ve to go get cholecystectomy a little bit sooner with the inflammation there. He does understand the importance of diet control and also no alcohol intake. KIMMY/JULIAN Voice ID: [id number] Report ID: [id number]
[2024-09-08 09:29] VITALS: BP 139/92; TEMP 98.2
--- NOTE | 2024-09-08 18:55 | PN ---
Date of Progress Note: 09/08/2024 Diagnoses: Acute cholecystitis, gallbladder mass, and gallstones. Subjective: The patient is doing great. Tolerating diet. No shortness of breath. No chest pain. No abdominal pain. No nausea. No vomiting. No fever. Objective: Chest: Clear. Abdomen: Soft and depressible. No Locke sign. No tenderness. No guarding or rebound. Extremities: Good capillary refill. Plan: He is going to go home on antibiotics by mouth and then we will refer him to [facility] for an ev aluation of the gallbladder since there could be a mass in that region and I would like him to be cara luated in case this is a neoplasm that can be resected at the same time. He liked that idea and he d oes not want to have the surgery done in this institution with the limitations that I just mentioned and he understands that. He was advised the importance of taking his antibiotics and also keeping a low-fat diet. If these pain comes back again, I advised him to immediately come to the ER. KIMMY/JULIAN Voice ID: [id number] Report ID: [id number]
--- NOTE | 2024-09-11 12:17 | EKG ---
Test Date: 2024-09-04 Test Time: 15:03:47 Computer Service Technician: IVETTE MEASUREMENT RESULTS: Intervals: Rate: 79 NC: 144 QRSD: 84 QT: 378 QTc: 433 Sasabe: P: 74 NC: 144 QRS: 65 T: 61 INTERPRETIVE STATEMENTS: Normal sinus rhythm Normal ECG Compared to ECG 08/05/2021 16:31:45 No significant changes Electronically Signed On 09-11-24 12:08:42 BLOOD TESTER FOWL by Víctor Gavin
== END 2024-09-08 10:02 | disposition home or self-care (01) | DRG 444 ==
LOC: ER 11:51 → ERHOLD 14:33 → 2ND 15:19
PROVIDERS: ADMIT Hospitalist; ATTEND Internal Medicine
DX: K81.0 Acute cholecystitis (principal); J69.0 Pneumonitis due to inhalation of food and vomit; E87.6 Hypokalemia; I10 Essential (primary) hypertension; F10.10 Alcohol abuse, uncomplicated; K82.9 Disease of gallbladder, unspecified; K21.9 Gastro-esophageal reflux disease without esophagitis; K42.9 Umbilical hernia without obstruction or gangrene; F17.210 Nicotine dependence, cigarettes, uncomplicated; R73.03 Prediabetes; Z91.010 Allergy to peanuts; Z79.899 Other long term (current) drug therapy
CPT/HCPCS: 36415; 74177; 74181; 76705; 80053; 80061; 82248; 82947; 83605; 83690; 83735; 84484; 85025; 85610; 85730; 87040; 93005; 96361; 96365; 96375; 99285; J0360; J2405; J2470; J2543; J3480; J7030; Q9967

== ENCOUNTER 2024-09-29 14:51 | Emergency (ER) | payer OTHER ==
--- OUTSIDE RECORDS SUMMARY | 2024-09-29 14:55 | XMS REPORT | Continuity of Care Document ---
Author Name Unknown Address [address] [place] [address] [facility] Address [address] [facility] [address] [place] [address] Care Team Providers Care Job Developer For Deaf Adults Name Role Phone LYLA ROCHA Attending Clinician Unavailable SHIRA LAUREN Attending Clinician Unavailable [id number] Attending Clinician Unavailable [id number] Attending Clinician Unavailable KATRINA PARKER Attending Clinician Unavailable MYRNA Attending Clinician Unavailable Payers Payer Name Policy Type Policy Number Effective Date Expirati on Date Source [employer] [employer]CE[employer] 94 [place] 9 [id number] 2024 00:00:00 Social History Social Habit Start Date Stop Date Quantity Comments Source Sexual orientation Paco jerome Lealold - External Sex 2024-04-26 21:43:43 2024-04-26 21:43:43 Male (finding) Марина Layton - External Sex assigned at 1970 00:00:00 1970 00:00:00 Марина Rodriguez External Smoking Status Start Date Stop Date Source Tobacco smoking consumption unknown Марина Diana Medications Ordered Medication Name Filled Medication Name Start Date Stop Date Current Medication? Ordering Clinician Indication Dosage Frequency Signature (SIG) Comments Components Source Albuterol HFA 108 (90 Base) MCG/ACT IN AERS 2023-10 14:37: 47 Yes INHALE 2 PUFFS EVERY 4 HOURS BY INHALATION ROUTE NEEDED. Марина Layton - Externa l Pantoprazol e Sodium 40 MG oral Tablet Delayed Response 2023-10 14:37: 47 Yes 40mg QD Take 1 tablet (40 mg total) by mouth daily. Марина partida Dicyclomine HCl 20 MG oral Tablet 2023-10 14:37: 47 Yes Take 1 tablet 4 times a day by oral route as needed for 7 days, for abdominal cramping. Марина partida Ondansetron HCl 4 MG oral Tablet 2023-10 14:37: 47 Yes Take 1 tablet every 6 hours by oral route as needed for 5 days, for nausea or vomiting. Марина partida Losartan Potassium (COZAAR) 50 MG oral Tablet 2023-10 00:00: 00 Yes 50mg QD Take 1 tablet (50 mg total) by mouth daily. Марина partida Cetirizine (ZYRTEC) 10 MG oral Tablet 11-25 00:00: 00 Yes Take 1 tablet every day by oral route at bedtime for 30 days. Марина partida Terbinafine HCl 1 % apply externally Cream 11-25 00:00: 00 Yes APPLY TO THE AFFECTED AND SURROUNDIN G AREAS OF SKIN BY TOPICAL ROUTE ONCE DAILY Марина partida Vital Signs Vital Name Observation Time Observation Value Comments S ource Systolic blood pressure 2024-09-25 20:38:00 112 mm[Hg] Марина ac - External Diastolic blood pressure 2024-09-25 20:38:00 80 mm[Hg] Марина ac - External Heart rate 2024-09-25 20:38:00 60 /min Glenn Layton - External Body temperature 2024-09-25 20:38:00 36.5 Jazmyne Марина Layton - External Body weight 2024-09-25 20:38:00 87.091 kg Judy Layton - External Encounters Start Date/Time End Date/Time Encounter Type Admission Type Attending [facility] Facility Care Department Encounter ID Source 2025-03-08 09:45:00 2025-03-08 09:45:00 Outpatient LYLA ROCHA [id number] Марина Layton 2024-10-19 09:42:00 2024-10-19 09:42:00 Outpatient SHIRA LAUREN [id number] [facility] 2024-09-28 00:00:00 2024-09-28 00:00:00 Outpatient МАРИНА PARISH [id number] Марина [facility] 2024-09-27 15:15:00 2024-09-27 15:15:00 Outpatient [id number] МАРИНА PARISH [id number] [facility] 2024-09-27 14:35:00 2024-09-27 14:35:00 Outpatient [id number] МАРИНА PARISH [id number] Марина [facility] 2024-09-27 13:45:00 2024-09-27 13:45:00 Outpatient SHIRA LAUREN [id number] [facility] 2024-09-27 00:00:00 2024-09-27 00:00:00 Outpatient SHIRA LAUREN [id number] [facility] 2024-09-25 14:40:00 2024-09-25 14:40:00 [facility]patient [id number] [facility]21 00:00:00 2024-09-21 00:00:00 Outpatient MYRNA PARISH [id number] Марина [facility]
--- NOTE | 2024-09-29 16:13 | RAD REPORT ---
Abdomen Exam Limited: 09/29/2024 3:20 PM CLINICAL HISTORY: ABD PAIN STUDY: Limited right upper quadrant ultrasound of abdomen. COMPARISON: MRI 09/05/2024, ultrasound 09/04/2024 FINDINGS: Cholelithiasis again identified with gallbladder wall thickening. Gallbladder wall measures proximal 9 mm. This is similar to the prior MRCP and ultrasound. The common bile duct was not measured. A sonographic Locke sign was not reported. The polypoid lesion with vascular flow identified on the pr ior ultrasound was not imaged today. IMPRESSION: Cholelithiasis with gallbladder wall thickening similar to the ultrasound from 09/04/2024. As before, this could represent cholecystitis.
[2024-09-29] MEDS ORDERED: NA CHLORIDE 0.9% 1,000 ML ONE (16:24)
[2024-09-29] MEDS ORDERED: MORPHINE 4 MG/ML SYR ONE ×2 (16:24→17:23)
[2024-09-29] MEDS ORDERED: FAMOTIDINE 20 MG/2 ML VIAL IV ONE (16:24)
[2024-09-29] MEDS ORDERED: ONDANSETRON 4 MG/2 ML VIAL ONE (16:24)
[2024-09-29 16:26] LABS: Absolute Basophils 0.1 K/uL (0-0.5); Absolute Eosinophils 0.3 K/uL (0-0.5); Absolute Lymphocytes (CBC) 1.8 K/uL (0.7-4.9); Absolute Monocytes 0.6 K/uL (0.1-1.3); Absolute Neutrophil 6.3 K/uL (1.8-8.0); Basophils % 0.6 % (0-1.3); Eosinophils % 3.4 % (0-4.4); Hematocrit 37.8 % (39.6-49.0); Hemoglobin 12.2 g/dL (13.6-17.9); Lymphocytes % 19.6 % (15.3-44.8); MCH 25.1 pg (27.0-35.0); MCHC 32.3 g/dL (32.0-36.0); MCV 77.6 fL (80-100); MPV 7.8 fL (7.6-11.3); Monocytes % 6.7 % (3.3-12.3); Neutrophils % 69.7 % (41.7-73.7); Platelets 246 thou/uL (152-406); RBC Red Blood Cell Count 4.87 M/uL (4.33-5.43)
[2024-09-29 16:46] LABS: Albumin 3.4 g/dL (3.4-5.0); Albumin/Globulin Ratio 0.9 (1.1-1.8); Anion Gap 7.3 mEq/L (5.0-15.0); Bilirubin Total 0.4 mg/dL (0.2-1.0); Globulin 3.9 g/dL (2.3-3.5); Potassium 4.3 mEq/L (3.5-5.1); Protein, Total 7.3 g/dL (6.4-8.2)
--- NOTE | 2024-09-29 17:04 | ER ---
Nurse's Notes [facility] Name: Rich Prakash Age: 53 yrs Sex: Male : 1970 Arrival Date: 09/29/2024 Time: 14:51 Bed 13 Private MD: Diagnosis: Other cholelithiasis without obstruction Presentation: 09/29 15:08 Chief complaint: Spouse and/or significant other states: has infected gallbladder, ko1 suppose to be removed in October in [place], is having "flare up". Coronavirus screen: At this time, the client does not indicate any symptoms associated with coronavirus-19. Ebola Screen: No symptoms or risks identified at this time. Initial Sepsis Screen: Does the patient meet any 2 criteria? No. Patient's initial sepsis screen is negative. Does the patient have a suspected source of infection? No. Patient's initial sepsis screen is negative. Risk Assessment: Do you want to hurt yourself or someone else? Patient reports no desire to harm self or others. Onset of symptoms was September 29, 2024. 15:08 Method Of Arrival: Ambulatory ko1 15:08 Acuity: GRABIEL 3 ko1 Triage Assessment: 15:11 General: Appears in no apparent distress. Behavior is calm, cooperative, appropriate ko1 for age. Pain: Complains of pain in right upper quadrant. Historical: - Allergies: 15:11 Peanut; ko1 - PMHx: 15:11 acid reflux; Hypertension; ko1 - Immunization history:: Adult Immunizations unknown. - Infectious Disease History:: Denies. - Social history:: Smoking status: Patient/guardian denies using tobacco. Screenin:30 [facility] ED Fall Risk Assessment (Adult) History of falling in the last 3 months, tm6 including since admission No falls in past 3 months (0 pts) Confusion or Disorientation No (0 pts) Intoxicated or Sedated No (0 pts) Impaired Gait No (0 pts) Mobility Assist Device Used No (0 pt) Altered Elimination No (0 pt) Score/Fall Risk Level 0 - 2 = Low Risk Oriented to surroundings, Maintained a safe environment, Educated pt \\T\\ family on fall prevention, incl call for assistance when getting out of bed. Abuse screen: Denies threats or abuse. Denies injuries from another. Nutritional screening: No deficits noted. Tuberculosis screening: No symptoms or risk factors identified. Assessment: 15:30 General: Appears in no apparent distress. Behavior is calm, cooperative. Pain: tm6 Complains of pain in abdomen and right upper quadrant Pain currently is 10 out of 10 on a pain scale. Neuro: Level of Consciousness is awake, alert, obeys commands, Oriented to person, place, time, situation. Cardiovascular: Patient's skin is warm and dry. Respiratory: Airway is patent Respiratory effort is even, unlabored, Respiratory pattern is regular, symmetrical. GI: Abdomen is round Reports upper abdominal pain. : No signs and/or symptoms were reported regarding the genitourinary system. EENT: No signs and/or symptoms were reported regarding the EENT system. Derm: No signs and/or symptoms reported regarding the dermatologic system. Musculoskeletal: No signs and/or symptoms reported regarding the musculoskeletal system. Vital Signs: 15:08 BP 175 / 94; Pulse 77; Resp 16; Temp 98.1; Pulse Ox 98% ; ko1 17:32 BP 172 / 101; Pulse 74; Resp 19; Temp 98.1; Pulse Ox 96% on R/A; MAP 121 mmHg; Pain tm6 7/10; 17:32 Pain Scale: Adult tm6 ED Course: 14:55 Patient arrived in ED. al6 15:01 [facility]C [facility] kb 15:01 Wing Clay MD is Attending Physician. kb 15:11 Triage completed. ko1 15:11 Arm band placed on right wrist. Patient placed in waiting room, Patient notified of ko1 wait time. 15:30 Patient has correct armband on for positive identification. Bed in low position. Call tm6 light in reach. Side rails up X 1. Provided Education on: use of call whiteside. Client placed on continuous cardiac and pulse oximetry monitoring. NIBP monitoring applied. Pulse ox on. NIBP on. Door closed. Noise minimized. Lights dimmed. Warm blanket given. Pillow given. 15:59 Abdomen Limited US In Process Unspecified. EDMS 16:08 Danii Lawson, RN is Primary Nurse. tm6 16:21 Inserted saline lock: 20 gauge in left antecubital area, using aseptic technique. Blood aa5 collected. Flushed with 10 mL NS. 17:35 No provider procedures requiring assistance completed. IV discontinued, intact, tm6 bleeding controlled, No redness/swelling at site. Pressure dressing applied. Administered Medications: 16:44 Drug: Famotidine IVP 20 mg IVP once; dilute with 10 mL 0.9% NaCl; give over 2 minutes tm6 Route: IVP; Site: left antecubital; 17:32 Follow up: Response: No adverse reaction tm6 16:44 Drug: Ondansetron IVP 4 mg IVP once; over 2 minutes Route: IVP; Site: left antecubital; tm6 17:31 Follow up: Response: No adverse reaction tm6 16:44 Drug: morphine IVP or IV 4 mg IVP once over 4 mins Route: IVP; Infused Over: 4 mins; tm6 Site: left antecubital; 17:31 Follow up: Response: No adverse reaction tm6 16:44 Drug: NS 0.9% IV 1000 ml IV at 1 bolus Per protocol; to be given as a bolus over 60 tm6 minutes Route: IV; Rate: 1 bolus; Site: left antecubital; 17:31 Follow up: Response: No adverse reaction; IV Status: Completed infusion; IV Intake: tm6 1000ml 17:31 Drug: morphine IVP or IV 4 mg IVP once over 4 mins Route: IVP; Infused Over: 4 mins; tm6 Site: left antecubital; 17:32 Follow up: Response: Medication administered at discharge. tm6 Medication: 15:30 VIS not applicable for this client. tm6 Intake: 17:31 IV: 1000ml; Total: 1000ml. tm6 Outcome: 17:03 Discharge ordered by MD. diaz 17:35 Discharged to home ambulatory, with family, tm6 17:35 Condition: stable 17:35 Discharge instructions given to patient, family, Instructed on discharge instructions, follow up and referral plans. medication usage, Demonstrated understanding of instructions, follow-up care, medications, Prescriptions given X 1, 17:35 Patient left the ED. tm6 Signatures: Dispatcher [employer] EDBreanna Powell, JOSE DOOLEY-Sofi Hdz RN RN aa5 Valeria Steele RN RN ko1 Danii Lawson RN RN tm6 Valeri [email or web address]
--- NOTE | 2024-09-29 17:04 | EDPHYS ---
Physician Documentation [facility] Name: Rich Prakash Age: 53 yrs Sex: Male : 1970 Arrival Date: 09/29/2024 Time: 14:51 Bed 13 Private MD: ED Physician Wing Clay HPI: 09/29 16:14 This 53 yrs old Male presents to ER via Ambulatory with complaints of post kb surgical pain. 16:14 Pt is a 53 year old male who presents for RUQ pain that started this morning. States he kb has had this several times recently and is scheduled to have his gallbladder removed on [place]. Denies n/v/d/f. . Historical: - Allergies: 15:11 Peanut; ko1 - PMHx: 15:11 acid reflux; Hypertension; ko1 - Immunization history:: Adult Immunizations unknown. - Infectious Disease History:: Denies. - Social history:: Smoking status: Patient/guardian denies using tobacco. ROS: 16:14 Constitutional: As per HPI kb Exam: 16:14 Constitutional: This is a well developed, well nourished patient who is awake, alert, kb and in no acute distress. Head/Face: Normocephalic, atraumatic. ENT: Moist Mucous membranes Cardiovascular: Regular rate Respiratory: Respirations even and unlabored. No increased work of breathing. Talking in full sentences Skin: Warm, dry with normal turgor. Normal color. MS/ Extremity: Pulses equal, no cyanosis. Neurovascular intact. Full, normal range of motion. Neuro: Awake and alert, GCS 15, oriented to person, place, time, and situation. 16:14 Abdomen/GI: Inspection: abdomen appears normal, Bowel sounds: normal, Palpation: soft, in all quadrants, mild abdominal tenderness, in the right upper quadrant, Vital Signs: 15:08 BP 175 / 94; Pulse 77; Resp 16; Temp 98.1; Pulse Ox 98% ; ko1 17:32 BP 172 / 101; Pulse 74; Resp 19; Temp 98.1; Pulse Ox 96% on R/A; MAP 121 mmHg; Pain tm6 7/10; 17:32 Pain Scale: Adult tm6 MDM: 15:01 Medical Screening Exam initiated kb 17:00 Data reviewed: vital signs, nurses notes. kb 17:01 Differential diagnosis: cholelithiasis, cholecystitis, pancreatitis. Historians other kb than the Patient: Family Member: family. Counseling: I had a detailed discussion with the patient and/or guardian regarding the historical points, exam findings, and any diagnostic results supporting the discharge/admit diagnosis, lab results, radiology results, the need for outpatient follow up, a general surgeon, to return to the emergency department if symptoms worsen or persist or if there are any questions or concerns that arise at home. ED course: Pt controlled, pt tolerating po intake. Nontoxic in appearance. Educated to follow up with surgeon as planned. . 09/29 15:11 Order name: CBC with Diff; Complete Time: 16:31 kb 09/29 15:11 Order name: CMP; Complete Time: 16:47 kb 09/29 15:11 Order name: Lipase; Complete Time: 16:47 kb 09/29 15:11 Order name: Abdomen Limited US; Complete Time: 16:15 kb 09/29 15:11 Order name: IV Saline Lock; Complete Time: 16:21 kb 09/29 15:11 Order name: Labs collected and sent; Complete Time: 16:21 kb 09/29 16:51 Order name: PO challenge; Complete Time: 17:31 kb Administered Medications: 16:44 Drug: Famotidine IVP 20 mg IVP once; dilute with 10 mL 0.9% NaCl; give over 2 minutes tm6 Route: IVP; Site: left antecubital; 17:32 Follow up: Response: No adverse reaction tm6 16:44 Drug: Ondansetron IVP 4 mg IVP once; over 2 minutes Route: IVP; Site: left antecubital; tm6 17:31 Follow up: Response: No adverse reaction tm6 16:44 Drug: morphine IVP or IV 4 mg IVP once over 4 mins Route: IVP; Infused Over: 4 mins; tm6 Site: left antecubital; 17:31 Follow up: Response: No adverse reaction tm6 16:44 Drug: NS 0.9% IV 1000 ml IV at 1 bolus Per protocol; to be given as a bolus over 60 tm6 minutes Route: IV; Rate: 1 bolus; Site: left antecubital; 17:31 Follow up: Response: No adverse reaction; IV Status: Completed infusion; IV Intake: tm6 1000ml 17:31 Drug: morphine IVP or IV 4 mg IVP once over 4 mins Route: IVP; Infused Over: 4 mins; tm6 Site: left antecubital; 17:32 Follow up: Response: Medication administered at discharge. tm6 Disposition Summary: 09/29/24 17:03 Discharge Ordered Notes: Location: Home kb Condition: Stable kb Diagnosis - Other cholelithiasis without obstruction kb Followup: kb - With: Emergency Department - When: As needed - Reason: Worsening of condition Followup: kb - With: Private Physician - When: 2 - 3 days - Reason: Recheck today's complaints, Continuance of care, Re-evaluation by your physician Discharge Instructions: - Discharge Summary Sheet kb - Cholelithiasis, [id number] kb - Cholecystitis, [id number] kb Forms: - Medication Reconciliation Form kb - Antibiotic Education kb - Prescription Opioid Use kb - Patient Portal Instructions kb - Leadership Thank You Letter kb Prescriptions: - Diclofenac Sodium 75 mg Oral tablet, delayed release (enteric coated) - take 1 tablet ORAL route 2 times per day As needed; 30 tablet; Refills: 0, kb Product Selection Permitted Signatures: Dispatcher [employer] Breanna Cristina, HOOK UP DRIVER-C HOOK UP DRIVER-Valeria Machuca, RN RN ko1 Danii Lawson, RN RN tm6
[2024-09-29 17:50] VITALS: TEMP 98.1
[2024-09-29 17:56] VITALS: BP 172/101; O2SAT 96
== END 2024-09-29 17:35 | disposition home or self-care (01) ==
LOC: ER 14:51
DX: K80.80 Other cholelithiasis without obstruction (principal); I10 Essential (primary) hypertension
CPT/HCPCS: 96361; 85025; 36415; 83690; 80053; 76705; 96375; 96374; 99284; J2405; J7030